=== PATIENT | female | born 1995 | race Caucasian/White ===

== ENCOUNTER → 2017-12-16 15:15 | Outpatient (CLI) | payer OTHER, SELFPAY ==
--- NOTE | 2017-12-16 15:22 | US_ITS ---
STUDY: FIRST TRIMESTER OBSTETRICAL ULTRASOUND REASON FOR EXAM: Female, 22 years old. Bleeding, pain LMP: October 30, 2017 TECHNIQUE: Transvaginal TECHNICAL QUALITY: Adequate. PRIOR ULTRASOUND: None. FINDINGS: At the level of the cervix there is a small focus of well-circumscribed cystic structure measuring 0.78 cm. There is no demonstrated yolk sac. The placenta is non-visualized. There is no demonstrated embryo ( pole). The estimated gestation age (EGA) by LMP is 6 weeks, 5 days. The estimated date of delivery (GRICEL) by LMP is August 06, 2018. The retroverted uterus measures 7.7 x 5.5 x 5.0. There is no demonstrated uterine fibroid. The cervix is closed. The right ovary measures 4.0 x 2.4 x 2.2. There is a right ovarian cyst measuring 1.3 x 0.7 x 0.9 cm. The left ovary measures 3.8 x 2.2 x 1.7 cm. There is no left ovarian cyst. There is no visualized left adnexal mass or complex lesion. There are prominent bilateral pelvic vessels. There is no fluid in the cul de sac. US/Transvaginal w/Preg US IMPRESSION: There is a cystic structure at the low uterine segment/cervix which may represent a migrated gestational sac. There is a small amount of free fluid in the pelvis. Recommend correlation with beta hCG and follow-up ultrasound. Small amount of free fluid. No definitive visualized complex adnexal mass. Bilateral pelvic varices. Electronically Signed: Shari Calderon MD at 16:32 EDT Tel , Service support ,
[2017-12-16 18:13] LABS: hCG Titer Quant., Serum 1378 mIU/mL (<9 non-preg)
== END ==
PROVIDERS: Referring Provider Obstetrics & Gynecology; Visit Provider Obstetrics & Gynecology
DX: O20.0 Threatened abortion (principal); Z3A.00 Weeks of gestation of pregnancy not specified
CPT/HCPCS: 36415; 76817; 84702; 86850; 86900

== ENCOUNTER → 2018-04-11 09:09 | Outpatient (CLI) | payer OTHER, SELFPAY ==
[2018-04-11 08:11] VITALS: BMI 26.6
[2018-04-11 09:43] LABS: Absolute Lymphocyte Count 1.81 X10^3/ul (0.83-4.51); Absolute Neutrophil Count 5.8 X10^3/uL (2.0-7.7); Basophil# 0.02 X10^3/uL; Basophil% 0.2 % (0-1); Eosinophil# 0.04 X10^3/uL; Eosinophils% 0.5 % (0-5); Hematocrit 38.1 % (37-47); Hemoglobin 12.9 g/dl (12.0-15.0); Lymphocyte # 1.81 X10^3/ul (4.0); Lymphocyte % 22.4 % (19-41); Mean Corp Hgb Conc 33.9 g/gl (32-36); Mean Corpuscular Hgb 30.2 pg (27.0-32.0); Mean Corpuscular Volume 89.2 fL (81-99); Mean Platelet Vol. 8.9 fl (6.2-12.0); Monocyte% 4.9 % (0-10); Neutrophil % 71.8 % (47-70); Platelet Count 250 K/mm3 (150-450); RBC Distribution Width SD 38.4 fl (35.1-43.9); Red Blood Count 4.27 M/mm3 (4.2-5.4); White Blood Count 8.1 K/mm3 (4.4-11.0)
[2018-04-11 09:46] LABS: POSITIVE COUNT NO; POSITIVE DIFFERENTIAL NO; POSITIVE MORPHOLOGY NO
[2018-04-11 11:01] LABS: HIV - WCH Non-Reactive (Nonreactive); Rubella IgG 43.2 IU/mL
[2018-04-11 23:11] LABS: Chlamydia Trachomatis by PCR Negative (Negative); Neisserai gonorrhoeae by PCR Negative (Negative); Probe Check PASS; Sample Adequacy Control PASS; Specimen Processing Control PASS
[2018-04-12 11:52] LABS: HEPATITIS B SURFACE AG Negative (Negative)
[2018-04-14 07:39] LABS: Rapid Plasmin Reagin (RPR) NONREACTIVE (NONREACTIVE)
== END ==
PROVIDERS: Referring Provider Obstetrics & Gynecology; Visit Provider Obstetrics & Gynecology
DX: Z34.90 Encounter for supervision of normal pregnancy, unspecified, unspecified trimester (principal)
CPT/HCPCS: 85025; 86592; 86703; 86762; 86850; 86900; 87086; 87340; 87491; 87591

== ENCOUNTER → 2018-08-21 14:21 | Outpatient (CLI) | payer OTHER, SELFPAY ==
[2018-08-21 14:13] VITALS: BMI 26.7
[2018-08-21 15:01] LABS: Absolute Lymphocyte Count 1.91 X10^3/ul (0.83-4.51); Absolute Neutrophil Count 5.9 X10^3/uL (2.0-7.7); Basophil# 0.03 X10^3/uL; Basophil% 0.4 % (0-1); Eosinophil# 0.12 X10^3/uL; Eosinophils% 1.4 % (0-5); Hematocrit 35.6 % (37-47); Hemoglobin 11.9 g/dl (12.0-15.0); Lymphocyte # 1.91 X10^3/ul (4.0); Lymphocyte % 22.7 % (19-41); Mean Corp Hgb Conc 33.4 g/gl (32-36); Mean Corpuscular Hgb 30.6 pg (27.0-32.0); Mean Corpuscular Volume 91.5 fL (81-99); Mean Platelet Vol. 8.7 fl (6.2-12.0); Monocyte# 0.39 X10^3/uL; Monocyte% 4.6 % (0-10); Neutrophil # 5.94 X10^3/uL (2.7-7.7); Neutrophil % 70.7 % (47-70); Platelet Count 227 K/mm3 (150-450); RBC Distribution Width CV 12.8 % (11.6-14.6); RBC Distribution Width SD 42.4 fl (35.1-43.9); Red Blood Count 3.89 M/mm3 (4.2-5.4); White Blood Count 8.4 K/mm3 (4.4-11.0)
[2018-08-21 15:03] LABS: POSITIVE COUNT NO; POSITIVE DIFFERENTIAL NO; POSITIVE MORPHOLOGY NO
[2018-08-21 15:17] LABS: Glucose Challenge Gest 1H 50g 126 mg/dL (70-140)
== END ==
PROVIDERS: Referring Provider Obstetrics & Gynecology; Visit Provider Obstetrics & Gynecology
DX: Z34.90 Encounter for supervision of normal pregnancy, unspecified, unspecified trimester (principal)
CPT/HCPCS: 36415; 82950; 85025

== ENCOUNTER 2018-11-10 09:20 | Inpatient (IN) | payer OTHER, SELFPAY ==
[2018-08-21 14:13] VITALS: BMI 26.7
[2018-10-31 14:01] VITALS: BMI 30.7
[2018-11-10] VITALS (19 sets, daily range): BP systolic 121–146; BP diastolic 71–90; PULSE 74–96; RESP 18–20; TEMP 36.1–37.3; O2SAT 96–98; BMI 31.4
[2018-11-10] MEDS: Lactated Ringers 1,000 ML 999 ML IV (09:40)
[2018-11-10 10:06] LABS: Absolute Lymphocyte Count 2.25 X10^3/uL (0.83-4.51); Absolute Neutrophil Count 5.1 X10^3/uL (2.0-7.7); Basophil# 0.04 X10^3/uL; Basophil% 0.5 % (0-1); Eosinophil# 0.07 X10^3/uL; Eosinophils% 0.9 % (0-5); Hematocrit 36.2 % (37-47); Hemoglobin 12.3 g/dL (12.0-15.0); Lymphocyte # 2.25 X10^3/ul (4.0); Lymphocyte % 27.6 % (19-41); Mean Corpuscular Hgb 30.9 pg (27.0-32.0); Mean Platelet Vol. 10.1 fl (6.2-12.0); Monocyte% 7.4 % (0-10); NRBC Flagged by Analyzer 0 % (0-5); Neutrophil # 5.12 X10^3/uL (2.7-7.7); Neutrophil % 62.9 % (47-70); Platelet Count 192 K/mm3 (150-450); RBC Distribution Width CV 12.4 % (11.6-14.6); Red Blood Count 3.98 M/mm3 (4.2-5.4); White Blood Count 8.1 K/mm3 (4.4-11.0)
[2018-11-10] MEDS: Lactated Ringers 1,000 ML 150 ML IV (10:40)
[2018-11-10] MEDS: Sodium Citrate/Citric Acid 30 ML UDC PO (11:16)
[2018-11-10] MEDS: Oxytocin 30 units/NS 500 ml 30 UNITS/500 ML IV.SOLN 167 UNITS IV (12:56)
[2018-11-10] MEDS: Acetaminophen 500 MG Tablet 1000 MG PO ×2 (13:41→21:49)
--- NOTE | 2018-11-10 14:34 | HP.PCM_ITS ---
- Problem List (1) History of delivery Status: Acute Comment: plan RLTCS- scheduled 11/10 at 0730 (2) Status: Acute Qualifiers: Comment: genetic, NTD, carrier screening declined. 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 Is patient in pain?: No Allergies No Known Allergies Allergy (Verified 10/31/18 14:00) Medications valacyclovir 500 mg tablet 500 mg PO DAILY #30 tab 12/19/17 [Rx Confirmed 10/31/18] vitamin#30 30 mg iron-10 mg iron-folic acid 1 mg-omg3 capsule cap PO cap 04/11/18 [History Confirmed 10/31/18] Last Menstral Period: 10/30/17 Zika: Zika virus screening: Negative : No [facility] Social History (Updated 10/31/18 @ 14:16 by Barbara Loja MD) Smoking Status: Never smoker alcohol intake: never substance use type: does not use caffeine: Yes what type of physical activity do you participate in: walking seatbelt use: always do you feel safe at home: Yes additional social history: Carlos Manuel- Works at [email or web address] Patient works at [employer] Pregancy History 3 Elective abortions Hx Para 1 Spontaneous abortions 1 Hx # Term Pregnancies Ectopic pregnancies Hx # Pregnancies Multiple births # of living children Past Pregnancies Del. Date Name GA/Weeks Outcome Route Bth Weight Gen Labor Lgth Anesthesia Del Locatn Provider FOB Unknown 2012 Ken 39 live - full term 8 14 ounces Male EB Delivery Date: On 04/11/18 @ 08:34 Barbara Loja due to LGA, post op pneumonia, blood transfused due to transfusion HPI 38 WEEK OB: Details: MARIKA TERRELL is a 23 year old who presents for routine OB visit. OB Visit GRICEL Calculator Estimated Delivery Date Method Current WG Current Estimate 11/17/18 LMP (Certain) 37w 4d Expected Delivery Route/Plan RLTCS Specific Issue/Plans flu vaccine: had tdap vaccine: given rhogam: na LARC form signed: declined labor support person: Carlos Manuel pain management: spinal cut cord/dad catch: : yes PP control planned: [] discussed possible routes of delivery and associated risks: [] special requests: [] Initial Weight: Not Recorded Date EGA Weight BP Urine Prot Glucose FHR FuHt Pres Mov CTX Dilation Effaced St Visit Note Effaced 05/09/18 12w 4d 168 lb 4 oz 112/70 160 no vb cramping doing wel declined all genetic screening 06/09/18 17w 0d 169 lb 4 oz 142/70 Negative Negative 155 no vb cramping, schedule us 07/07/18 21w 0d 171 lb 120/68 161 Active Doing well. No VB, LOF 08/02/18 24w 5d 132/62 Negative Negative 155 no vb lof good fm 08/21/18 27w 3d 181 lb 4 oz 124/64 Negative Negative 150 30 no vb lof good fm n oregular ctx 09/04/18 29w 3d 183 lb 126/70 Negative Negative 140 31 no vb lof good fm no regular ctx intermittnt lower cramping in low back pain 09/19/18 31w 4d 186 lb 6 oz 118/70 Negative Negative 155 34 Active absent no vb lof good fm n oregular ctx 10/03/18 33w 4d 190 lb 124/72 Negative Negative 150 34 Active absent no vb lof good fm no regular ctx 10/17/18 35w 4d 196 lb 134/82 Negative Negative 150 36 Active absent no vb loof good fm no regular ctx 10/24/18 36w 4d 196 lb 140/92 150 37 Active absent patient declined gbs testing. no vb lof good fm no regularctx 10/31/18 37w 4d 196 lb 136/82 Negative Negative 140 39 Active absent no vb lof good fm no regular ctx but having some irregular pain and pressure Visit Notes Visit Date: 10/31/18 ??no vb lof good fm no regular ctx but having some irregular pain and pressure ??Barbara Loja MD on 10/31/18 Visit Date: 10/24/18 ??patient declined gbs testing. no vb lof good fm no regularctx ??Barbara Loja MD on 10/25/18 Visit Date: 10/17/18 ??no vb loof good fm no regular ctx ??Barbara Loja MD on 10/17/18 Visit Date: 10/03/18 ??no vb lof good fm no regular ctx ??Barbara Loja MD on 10/03/18 Visit Date: 09/19/18 ??no vb lof good fm n oregular ctx ??Barbara Loja MD on 09/19/18 Visit Date: 09/04/18 ??no vb lof good fm no regular ctx intermittnt lower cramping in low back pain ??Barbara Loja MD on 09/04/18 Visit Date: 08/21/18 ??no vb lof good fm n oregular ctx ??Barbara Loja MD on 08/21/18 Visit Date: 08/02/18 ??no vb lof good fm ??Barbara Loja MD on 08/02/18 Visit Date: 07/07/18 ??Doing well. No VB, LOF ??MT Momin on 07/07/18 Visit Date: 06/09/18 ??no vb cramping, schedule us ??Barbara Loja MD on 06/09/18 Visit Date: 05/09/18 ??no vb cramping doing wel declined all genetic screening ??Barbara Loja MD on 05/09/18 ACOG First Trimester First Trimester: Discussed Diagnostics Diagnostics Labs Blood Type A POSITIVE 04/11/18 Antibody Screen NEGATIVE 04/11/18 Hct 35.6 % (37-47) L 08/21/18 Hgb 11.9 g/dl (12.0-15.0) L 08/21/18 Rubella IgG Antibody 43.2 IU/mL 04/11/18 RPR NONREACTIVE (NONREACTIVE) 04/11/18 Hep Bs Antigen Negative (Negative) 04/11/18 HIV 1&2 Antibody Non-Reactive (Nonreactive) 04/11/18 Chlam trachomat DNA PCR Negative (Negative) 04/11/18 N.gonorrhoeae DNA (PCR) Negative (Negative) 04/11/18 Glucose 1 Hr 50 gm 126 mg/dL (70-140) 08/21/18 Diagnostics Blood Type A POSITIVE 04/11/18 Antibody Screen NEGATIVE 04/11/18 Glucose 1 Hr 50 gm 126 mg/dL (70-140) 08/21/18 HIV 1&2 Antibody Non-Reactive (Nonreactive) 04/11/18 Rubella IgG Antibody 43.2 IU/mL 04/11/18 Hgb 11.9 g/dl (12.0-15.0) L 08/21/18 Hct 35.6 % (37-47) L 08/21/18 RPR NONREACTIVE (NONREACTIVE) 04/11/18 Details: HIV: Urine Culture: Sequential Screen: NIPT Screen: ROS: all systems reviewed and negative unless otherwise specified PE: VSSAF General: alert oriented comfortable HEENT: no thyromegaly or lymphadenopathy Cardio: RRR Pulm: CTAB Abdn: gravid nttp appropriate for GA FHT 140 Ext: minimal edema Results [id number] Office Urine Glucose Negative Last Edit by Gisela Truong on 10/31/18 14:0 5 Office Urine Protein Negative Last Edit by Gisela Truong on 10/31/18 14:0 5 Assessment & Plan Problems 1. History of delivery Z98.891 3. Encounter for supervision of other normal in third trimester Z34.83 4. Herpes simplex vulvovaginitis A60.04 Plan RLTCS patient declined TOLAC Orders Orders: POC Urinalysis 2 Dip (Clinic) Today Coding Level of Care Code OB Routine Diagnoses History of delivery Z98.891 37 weeks gestation of Z3A.37 ??Weeks of gestation: 37 weeks Encounter for supervision of other normal in third trimester Z34.83 ??Normal : other normal ??Trimester: third trimester Herpes simplex vulvovaginitis A60.04 ??Herpes simplex infection site: vulvovaginitis
--- NOTE | 2018-11-10 14:36 | OP.PCM_ITS ---
Problem List (1) History of delivery Status: Acute Comment: plan RLTCS- scheduled 11/10 at 0730 (2) Status: Acute Qualifiers: Comment: genetic, NTD, carrier screening declined. normal anatomy (3) Supervision of normal Status: Acute Qualifiers: Comment: PRR GRICEL 11/17/18 girl Katalina Rogers Carlos Manuel (4) Genital herpes Status: Acute Qualifiers: Comment: valtrex daily Delivery Classification: Scheduled Final GRICEL: 11/17/18 Gestational age: 39 Weeks and Days technologist development: Amairani Davis Type of Anesthesia:: Spinal Special Medications: none Implants Used: none Indications for : Repeat Elective Description of Procedure: The patient is a 23-year-old G2, P1 at 39 weeks presented for repeat . Spinal anesthesia was placed without difficulty. Mcintosh catheter was placed. The patient was placed in the dorsal supine position with leftward tilt. Patient was prepped and draped in the normal sterile fashion. Pfannenstiel skin incision was made with the scalpel and carried through to the underlying layer of fascia with the scalpel. Fascia was nicked in the midline and the incision extended laterally. The rectus bellies were dissected off superiorly and inferiorly with out complication both sharply and bluntly. The peritoneum was entered digitally. The incision was stretched and a low transverse uterine incision was made with the scalpel. The 's head was delivered atraumatically followed by the anterior and posterior shoulders without complication the rest of the delivered. The cord was clamped and cut and the was handed off to awaiting nurse. The placenta was delivered spontaneously immediately following and was noted to be intact and have a three- vessel cord. The uterus was exteriorized cleared of all clots and debris, and the incision was closed in a double layer closure using #1 Monocryl. The ovaries and fallopian tubes were noted to be within normal limits. The uterus was returned to the maternal abdomen and gutters were cleared of all clots and debris. The peritoneum was closed with 3-0 Monocryl in a running fashion. Gloves were changed prior to fascial closure. Fascia was closed with 0 PDS in a running fashion. Subcutaneous tissue was copiously irrigated and the skin was closed with 3-0 Monocryl in a subcuticular fashion. Mepilex dressing was applied without complication. Patient was taken to recovery in stable condition. Amniotic Membrane Rupture Type: Artificial Amniotic Fluid Description: Clear Placenta Disposition: [facility] Specimen(s) sent to pathology: placenta Drain: Mcintosh to straight drain Fluids Replaced: crystalloid Cord Entanglement: None Nuchal Cord Compression: Without compression Cord Vessel Description: 3 Vessels Esitmated Blood Loss (ml): 800 Infant Gender: Female Delayed cord clamping: Yes Antibiotic Given: Clindamycin 600mg IV x1 and Gentamicin 1.5mg/kg IV x1 Pt instructed on risks of surgery: Bleeding, Anesthesia Risks, Infection, Injury to surrounding structure(s) including bowel and bladder Complications: None - Admit VTE Documentation VTE Present on Admission: No VTE Mechan Device Prophylaxis: SCD's Multi Select Codes - Urinary/Genital Urinary/Genital CPT Codes: 23106 Delivery [facility]
[2018-11-10] MEDS: Lactated Ringers 1,000 ML 100 ML IV (16:07)
[2018-11-10] MEDS: Ondansetron ODT 4 MG Tablet PO (16:22)
[2018-11-10] MEDS: Ketorolac 30 MG/ML Syringe IV (18:08)
--- NOTE | 2018-11-10 19:54 | NURSING ---
Pt. up to walk in hallway. Up with assist x1, from room 10 around to room 3 and back to room to sit in chair again.
[2018-11-10] MEDS: Senna/Docusate Sodium 1 Tablet PO (21:50)
[2018-11-11] VITALS (10 sets, daily range): BP systolic 105–134; BP diastolic 62–87; PULSE 72–89; RESP 14–18; TEMP 36.1–37.1; O2SAT 95–99
[2018-11-11] MEDS: Ketorolac 30 MG/ML Syringe IV ×4 (00:25→17:29)
[2018-11-11] MEDS: Lactated Ringers 1,000 ML 100 ML IV (00:28)
--- NOTE | 2018-11-11 07:21 | PN.OBGYN_ITS ---
Subjective: doing well no complaints pain controlled no CP SOB N V ambulating well tolerating po lochia moderate, going well - Physical Exam General: Alert, Oriented x3 Vital Signs Temp Pulse Resp BP Pulse Ox 97.0 F L 78 18 105/62 95 11/11/18 04:00 11/11/18 04:00 11/11/18 07:00 11/11/18 04:00 11/11/18 07:00 Oxygen Delivery Method Room Air Weight: 200 lb 13.458 oz Body Mass Index (BMI) 31.4 Intake and Output for Last 24 Hours 11/09/18 11/10/18 11/11/18 23:59 23:59 23:59 Intake Total 5573.75 / 5573.75 776.67 / 776.67 Output Total 1400 / 1400 Balance 4173.75 / 4173.75 776.67 / 776.67 Laboratory Tests Past 24 Hrs 11/10/18 11/10/18 09:40 09:40 WBC 8.1 RBC 3.98 L Hgb 12.3 Hct 36.2 L MCV 91.0 MCH 30.9 MCHC 34.0 RDW Std Deviation 41.0 RDW Coeff of Keisha 12.4 Plt Count 192 MPV 10.1 Immature Gran % (Auto) 0.700 Neut % (Auto) 62.9 Lymph % (Auto) 27.6 [place] % (Auto) 7.4 Eos % (Auto) 0.9 Baso % (Auto) 0.5 Absolute Neuts (auto) 5.1 Absolute Lymphs (auto) 2.25 Nucleated RBC % 0 Blood Type A POSITIVE Antibody Screen NEGATIVE Medical Necessity - Tobacco Use Smoking Status: Never smoker Assessment/Plan All Active Problems (Last Reviewed 10/31/18 @ 14:01 by Gisela Truong) History of delivery (Acute) (Acute) Supervision of normal (Acute) Genital herpes (Acute) s/p LTCS PPD # 1 1. routine post care 2. breast feeding- support given 3. rh positive 4. rubella immune
--- NOTE | 2018-11-11 07:22 | DCINST_ITS ---
Discharge Diet: No Restrictions Discharge Activity: May Not Drive - for 2 weeks, May not drive while taking narcotic pain medications., May Shower, May Take a Tub Bath - in 7 days May resume sexual activity in: 4-6 weeks Lifting Restrictions: 20 pounds Additional Activity Instructions:: Nothing in the vagina for 4-6 weeks. You may return to work/school in 6 weeks. Call your doctor if your incision/area has: Continuous Slow Oozing, Sudden Increased Bleeding, Increased Pain/ Swelling, Increased Redness, Foul Smelling Discharge Call your doctor if you observe: Fever of 101 or Higher, Using more than one pad per hour - for 2 hours Suture Line Care: Avoid Pulling/Pushing, Avoid Pinching/Bending Cleanse incision/area with: Keep Dressing Clean & Dry Additional Instructions: If you experience any of the following, contact your healthcare provider. * Bleeding that soaks a pad every hour for 2 hours * Fever 100.4 or higher * Unrelieved incision or abdominal pain * Swelling, redness, discharge or bleeding from your incision or episiotomy site * Your incision begins to separate * Problems urinating (including inability to urinate or burning while urinating). * Visual changes * Severe headache * Flu-like symptoms * Pain or redness in one of both of your breasts * Pain, warmth, tenderness or swelling in your legs, especially the calf area * Frequent nausea and vomiting * Symptoms of depression or anxiety If you experience any of the following, call 911 or go to the nearest Emergency Room. * Chest pain * Problems breathing * Seizure activity * Partial or complete paralysis of a body part, slurred speech, weakness or drooping of the face, or a sudden inability to walk or hold your balance Allergies/Adverse Reactions: Allergies Penicillins [PCN] Allergy (Verified 11/11/18 02:50) Hives Medications to take at Discharge vitamin#30 30 mg iron-10 mg iron-folic acid 1 mg-omg3 capsule 1 cap PO DAILY cap 04/11/18 Valacyclovir HCl [Valacyclovir] 500 mg PO DAILY 11/10/18 Naproxen [Naprosyn] 250 - 500 mg PO Q8H PRN PRN #30 tab 11/11/18 Oxycodone HCl/Acetaminophen [Percocet 5-325] 1 - 2 tab PO Q4H PRN PRN 7 Days #28 tab 11/11/18 The following prescriptions were given: Naproxen [Naprosyn] 250 - 500 mg PO Q8H PRN PRN #30 tab PRN Reason: MILD PAIN Transmission Status: Received by [facility] Oxycodone HCl/Acetaminophen [Percocet 5-325] 1 - 2 tab PO Q4H PRN PRN 7 Days #28 tab PRN Reason: Moderate-Severe pain Transmission Status: Received by [facility] Follow-Up: Call to make an appointment with your doctor for an incision check in 1-2 weeks. You will also need a 6 week post- follow up appointment. Test results from this visit will be discussed in further detail at your follow- up appointment, if applicable. Please Follow Up With: Barbara Loja MD - Call to make an appointment for an incision check in 1-2 [phone] When: You will need a post- check in 6 weeks. Primary Care Physician: Care Physician,No Primary [Primary Care Provider] -
[2018-11-11 07:32] LABS: Hematocrit 30.9 % (37-47); Hemoglobin 10.5 g/dL (12.0-15.0); Mean Corpuscular Hgb 30.9 pg (27.0-32.0); Mean Corpuscular Volume 90.9 fL (81-99); Mean Platelet Vol. 9.9 fl (6.2-12.0); Platelet Count 166 K/mm3 (150-450); RBC Distribution Width CV 12.6 % (11.6-14.6); RBC Distribution Width SD 41.3 fl (35.1-43.9); White Blood Count 7.9 K/mm3 (4.4-11.0)
[2018-11-11] MEDS: 0.9% Saline Lock 10 ML Syringe 5 ML IV (17:30)
== END 2018-11-11 18:00 | disposition home or self-care (01) | DRG 787 ==
PROVIDERS: Admitting Provider Obstetrics & Gynecology; Referring Provider Obstetrics & Gynecology; Visit Provider Obstetrics & Gynecology
PROC: 10D00Z1 Extraction of Products of Conception, Low, Open Approach (ICD-10-PCS; CPT 59514; principal; 2018-11-10 11:15)
DX: O65.5 Obstructed labor due to abnormality of maternal pelvic organs (principal); O98.32 Other infections with a predominantly sexual mode of transmission complicating childbirth; A60.04 Herpesviral vulvovaginitis; O34.211 Maternal care for low transverse scar from previous cesarean delivery; Z3A.39 39 weeks gestation of pregnancy; Z37.0 Single live birth
CPT/HCPCS: 85025; 85027; 86850; 86900; 86901; 99218; J7120; A4216; G0378; J2405

== ENCOUNTER → 2018-12-21 16:57 | Outpatient (CLI) | payer OTHER, SELFPAY ==
[2018-12-21 13:49] VITALS: BMI 31.4
[2018-12-26 16:45] LABS: HPV Reflexed? NOT INDICATED
== END ==
PROVIDERS: Referring Provider Obstetrics & Gynecology; Visit Provider Obstetrics & Gynecology
DX: Z12.4 Encounter for screening for malignant neoplasm of cervix (principal)
CPT/HCPCS: 88175; G0145

== ENCOUNTER → 2019-10-29 16:06 | Outpatient (CLI) | payer OTHER, SELFPAY ==
[2019-10-29 16:01] VITALS: BMI 31.4
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
== END ==
PROVIDERS: Referring Provider Physician Assistant; Visit Provider Physician Assistant
DX: S89.91XA Unspecified injury of right lower leg, initial encounter (principal)
CPT/HCPCS: 73564

== ENCOUNTER → 2020-05-05 09:25 | Outpatient (CLI) | payer OTHER, SELFPAY ==
[2020-01-02 11:25] VITALS: BMI 27.7
[2020-05-05 10:37] LABS: hCG Titer Quant., Serum 235 mIU/mL (1-3)
== END ==
PROVIDERS: Referring Provider Obstetrics & Gynecology; Visit Provider Obstetrics & Gynecology
DX: O02.1 Missed abortion (principal); Z3A.00 Weeks of gestation of pregnancy not specified
CPT/HCPCS: 36415; 84702

== ENCOUNTER → 2020-05-07 09:24 | Outpatient (CLI) | payer OTHER, SELFPAY ==
[2020-01-02 11:25] VITALS: BMI 27.7
[2020-05-07 11:04] LABS: hCG Titer Quant., Serum 71 mIU/mL (1-3)
== END ==
PROVIDERS: Referring Provider Obstetrics & Gynecology; Visit Provider Obstetrics & Gynecology
DX: O02.1 Missed abortion (principal)
CPT/HCPCS: 36415; 84702

== ENCOUNTER → 2020-05-13 14:24 | Outpatient (CLI) | payer OTHER, SELFPAY ==
[2020-05-13 14:07] VITALS: BMI 29.0
[2020-05-13 15:16] LABS: hCG Titer Quant., Serum 4 mIU/mL (1-3)
[2020-05-16 16:08] LABS: Dilute Prothrombin Time (dPT) 34.3 sec (0.0-55.0); Dilute Russell Viper Venom 39.1 sec (0.0-47.0); PTT-LA 39.6 sec (0.0-51.9); Thrombin Time 19.3 sec (0.0-23.0); dPT Confirm Ratio 1.08 Ratio (0.00-1.40)
[2020-05-16 16:42] LABS: Anti-Cardiolipin Ab, IgA, Qn < 9 APL U/mL (0-11); Anti-Cardiolipin Ab, IgG, Qn < 9 GPL U/mL (0-14); Anti-Cardiolipin Ab, IgM, Qn < 9 MPL U/mL (0-12); Beta-2-Glycoprotein I IgA <9 (0-25); Beta-2-Glycoprotein I IgG <9 (0-20); Beta-2-Glycoprotein I IgM <9 (0-32); Interpretation Comment: (.)
== END ==
PROVIDERS: Referring Provider Obstetrics & Gynecology; Visit Provider Obstetrics & Gynecology
DX: O02.1 Missed abortion (principal); N96 Recurrent pregnancy loss; Z3A.00 Weeks of gestation of pregnancy not specified
CPT/HCPCS: 36415; 84443; 84702; 86146; 86147

== ENCOUNTER → 2020-09-27 10:36 | Outpatient (CLI) | payer OTHER, SELFPAY ==
[2020-05-13 14:07] VITALS: BMI 29.0
[2020-09-27 11:56] LABS: hCG Titer Quant., Serum 7692 mIU/mL (1-3)
== END ==
PROVIDERS: Referring Provider Obstetrics & Gynecology; Visit Provider Obstetrics & Gynecology
DX: N91.2 Amenorrhea, unspecified (principal)
CPT/HCPCS: 36415; 84702

== ENCOUNTER → 2020-09-29 07:50 | Outpatient (CLI) | payer OTHER, SELFPAY ==
[2020-05-13 14:07] VITALS: BMI 29.0
[2020-09-29 08:56] LABS: hCG Titer Quant., Serum 13324 mIU/mL (1-3)
== END ==
PROVIDERS: Referring Provider Obstetrics & Gynecology; Visit Provider Obstetrics & Gynecology
DX: N91.2 Amenorrhea, unspecified (principal)
CPT/HCPCS: 36415; 84702

== ENCOUNTER → 2020-10-27 15:23 | Outpatient (CLI) | payer OTHER, SELFPAY ==
[2020-10-27 13:29] VITALS: BMI 29.3
[2020-10-27 16:05] LABS: Amphetamine Urine VISTA NEGATIVE (<1000 ng/mL); Barbiturate Urine VISTA NEGATIVE (< 200 ng/mL); Benzodiazepine Urine VISTA NEGATIVE (< 200 ng/mL); Cocaine Urine VISTA NEGATIVE (< 300 ng/mL); Ecstacy Urine VISTA NEGATIVE (< 500 ng/mL); Methadone Urine VISTA NEGATIVE (< 300 ng/mL); PCP Urine VISTA NEGATIVE (< 25 ng/mL); THC Urine VISTA NEGATIVE (< 50 ng/mL); Vista UDS pH Range 6
[2020-10-29 20:08] LABS: Chlamydia By Nucleic Acid AMP Negative (Negative)
[2020-10-29 20:24] LABS: Gonococcus By Nucleic Acid AMP Negative (Negative)
== END ==
PROVIDERS: Referring Provider Obstetrics & Gynecology; Visit Provider Obstetrics & Gynecology
DX: Z34.90 Encounter for supervision of normal pregnancy, unspecified, unspecified trimester (principal)
CPT/HCPCS: 80307; 87086; 87088; 87491; 87591

== ENCOUNTER → 2020-10-30 09:52 | Outpatient (CLI) | payer OTHER, SELFPAY ==
[2020-10-30 10:09] LABS: Absolute Lymphocyte Count 1.64 X10^3/uL (0.83-4.51); Absolute Neutrophil Count 3.8 X10^3/uL (2.0-7.7); Basophil# 0.04 X10^3/uL; Basophil% 0.7 % (0-1); Eosinophil# 0.11 X10^3/uL; Eosinophils% 1.8 % (0-5); Hematocrit 37.8 % (37-47); Hemoglobin 12.6 g/dL (12.0-15.0); Lymphocyte # 1.64 X10^3/ul (0.83-4.51); Lymphocyte % 27.2 % (19-41); Mean Corp Hgb Conc 33.3 g/dL (32-36); Mean Corpuscular Hgb 29.4 pg (27.0-32.0); Mean Corpuscular Volume 88.3 fL (81-99); Mean Platelet Vol. 8.8 fl (6.2-12.0); Monocyte% 6.6 % (0-10); NRBC Flagged by Analyzer 0 % (0-5); Neutrophil # 3.83 X10^3/uL (2.7-7.7); Neutrophil % 63.4 % (47-70); Platelet Count 275 K/mm3 (150-450); RBC Distribution Width CV 11.8 % (11.6-14.6); RBC Distribution Width SD 37.8 fl (35.1-43.9); Red Blood Count 4.28 M/mm3 (4.2-5.4)
[2020-10-30 11:05] LABS: NATERA MAILED SPECIMEN
[2020-10-30 11:20] LABS: HIV - WCH Non-Reactive (Nonreactive); Hepatitis B Surface Antigen Non-Reactive (Nonreactive); Hepatitis C Antibody Non-Reactive (Nonreactive); Rubella IgG Reactive (Nonreactive); Syphilis Antibodies Non-reactive
== END ==
PROVIDERS: Referring Provider Obstetrics & Gynecology; Visit Provider Obstetrics & Gynecology
DX: Z34.81 Encounter for supervision of other normal pregnancy, first trimester (principal)
CPT/HCPCS: 36415; 85025; 86703; 86762; 86780; 86803; 86850; 86900; 86901; 87340

== ENCOUNTER → 2021-01-01 13:17 | Outpatient (CLI) | payer OTHER, SELFPAY ==
--- NOTE | 2021-01-01 13:22 | US_ITS ---
STUDY: SECOND AND THIRD TRIMESTER OBSTETRICAL ULTRASOUND REASON FOR EXAM: Female, 25 years old anatomy @ 20 weeks, pt 17 wks now LMP: 08/21/2020. TECHNIQUE: Transabdominal and Transvaginal TECHNICAL QUALITY: Adequate. PRIOR ULTRASOUND: None. FINDINGS: There is a single intrauterine fetus. The fetus is in a cephalic presentation. There is demonstrated cardiac activity with a heart rate of 147 bpm. There is a normal amniotic fluid volume. The largest amniotic fluid pocket measures 5.4 cm. The amniotic fluid index (NHI) is within normal limits The placenta is posterior in location and is not low lying. There are Grade 0 placental changes. The cervix measures 4.6 cm in length. The bilateral adnexal regions are normal. BIOMETRY: BPD: 4.22 cm: 18 weeks, 5 days HC: 16.03 cm: 18 weeks, 5 days AC: 14.53 cm: 19 weeks, 6 days FL: 2.88 cm: 8 weeks, 5 days CI: 74% FL/BPD: 68% FL/HC: FL/AC: 20% HC/AC: 1.1 age by current US: 19 weeks, 0 days. GRICEL by current US: 05/28/2021. Estimated weight: 288 grams, +/- 43 grams, 66 %. Age by LMP: 19 weeks, 0 days. GRICEL by LMP: 05/28/2021. ANATOMY: Gender: Female Cranium: Normal lateral ventricles. Normal choroid plexus. Normal cerebellum. Normal cisterna magna. Normal face, nose and lips. Chest: Normal 4-chamber heart. Abdomen/Pelvis: Normal diaphragm. Normal stomach. Normal abdominal wall. Normal cord insertion. Normal 3 vessel cord. Normal kidneys. Normal bladder. Spine: Normal cervical spine. Normal thoracic spine. Normal lumbar spine. Normal sacrum. Extremities: Normal bilateral upper extremities. Normal bilateral lower extremities. US/OB Anatomy Scan IMPRESSION: Single live intrauterine gestation with a mean gestational age of 19 weeks and 0 days. Electronically Signed: Kurtis Kennedy MD at 15:41 EDT , Service support ,
== END ==
PROVIDERS: Referring Provider Nurse Practitioner Women's Health; Visit Provider Nurse Practitioner Women's Health
DX: Z34.92 Encounter for supervision of normal pregnancy, unspecified, second trimester (principal); Z3A.19 19 weeks gestation of pregnancy
CPT/HCPCS: 76805; 76817

== ENCOUNTER → 2021-02-19 09:47 | Outpatient (CLI) | payer OTHER, SELFPAY ==
[2021-02-19 10:21] LABS: Absolute Lymphocyte Count 1.43 X10^3/uL (0.83-4.51); Absolute Neutrophil Count 6.6 X10^3/uL (2.0-7.7); Basophil# 0.05 X10^3/uL; Basophil% 0.6 % (0-1); Eosinophil# 0.06 X10^3/uL; Eosinophils% 0.7 % (0-5); Hemoglobin 11.7 g/dL (12.0-15.0); Lymphocyte # 1.43 X10^3/ul (0.83-4.51); Lymphocyte % 16.6 % (19-41); Mean Corp Hgb Conc 33.4 g/dL (32-36); Mean Corpuscular Hgb 30.2 pg (27.0-32.0); Mean Corpuscular Volume 90.4 fL (81-99); Mean Platelet Vol. 8.4 fl (6.2-12.0); Monocyte# 0.39 X10^3/uL; Monocyte% 4.5 % (0-10); NRBC Flagged by Analyzer 0 % (0-5); Neutrophil # 6.63 X10^3/uL (2.7-7.7); Neutrophil % 77.1 % (47-70); Platelet Count 329 K/mm3 (150-450); RBC Distribution Width CV 12.3 % (11.6-14.6); RBC Distribution Width SD 40.2 fl (35.1-43.9); Red Blood Count 3.87 M/mm3 (4.2-5.4); White Blood Count 8.6 K/mm3 (4.4-11.0)
[2021-02-19 10:33] LABS: Glucose Challenge Gest 1H 50g 91 mg/dL (70-140)
== END ==
PROVIDERS: Referring Provider Obstetrics & Gynecology; Visit Provider Obstetrics & Gynecology
DX: O09.90 Supervision of high risk pregnancy, unspecified, unspecified trimester (principal); Z3A.00 Weeks of gestation of pregnancy not specified
CPT/HCPCS: 36415; 82950; 85025

== ENCOUNTER 2021-05-01 16:52 | Outpatient (CLI) | payer OTHER, SELFPAY | END 2021-05-01 23:59 | disposition home or self-care (01) | LOC: LABSPEC 16:57 | PROVIDERS: Visit Provider Obstetrics & Gynecology | DX: O09.90 Supervision of high risk pregnancy, unspecified, unspecified trimester (principal) | CPT/HCPCS: 87081 ==

== ENCOUNTER 2021-05-15 10:32 | Outpatient (CLI) | payer OTHER, SELFPAY | END 2021-05-15 23:59 | disposition home or self-care (01) | LOC: LABSPEC 10:33 | PROVIDERS: Visit Provider Obstetrics & Gynecology | DX: Z34.83 Encounter for supervision of other normal pregnancy, third trimester (principal); Z3A.38 38 weeks gestation of pregnancy | CPT/HCPCS: 87635; U0003; U0005 ==

== ENCOUNTER 2021-05-21 05:40 | Inpatient (IN) | payer OTHER, SELFPAY ==
[2021-05-21] VITALS (17 sets, daily range): BP systolic 99–124; BP diastolic 51–81; PULSE 76–91; RESP 14–18; TEMP 36.1–36.9; O2SAT 95–100; BMI 35.2
[2021-05-21] MEDS: Lactated Ringers 1,000 ML 999 ML IV (06:20)
[2021-05-21] MEDS: Acetaminophen 500 MG Tablet 1000 MG PO ×3 (06:32→19:46)
[2021-05-21 06:43] LABS: Absolute Lymphocyte Count 2.49 X10^3/uL (0.83-4.51); Absolute Neutrophil Count 6.4 X10^3/uL (2.0-7.7); Basophil# 0.04 X10^3/uL; Basophil% 0.4 % (0-1); Eosinophil# 0.14 X10^3/uL; Eosinophils% 1.4 % (0-5); Hematocrit 35.8 % (37-47); Hemoglobin 12.8 g/dL (12.0-15.0); Lymphocyte # 2.49 X10^3/ul (0.83-4.51); Lymphocyte % 25.7 % (19-41); Mean Corp Hgb Conc 35.8 g/dL (32-36); Mean Corpuscular Hgb 31.4 pg (27.0-32.0); Mean Corpuscular Volume 87.7 fL (81-99); Mean Platelet Vol. 9.3 fl (6.2-12.0); Monocyte# 0.59 X10^3/uL; Monocyte% 6.1 % (0-10); NRBC Flagged by Analyzer 0 % (0-5); Neutrophil # 6.36 X10^3/uL (2.7-7.7); Neutrophil % 65.9 % (47-70); Platelet Count 234 K/mm3 (150-450); RBC Distribution Width CV 12.6 % (11.6-14.6); RBC Distribution Width SD 40.2 fl (35.1-43.9); Red Blood Count 4.08 M/mm3 (4.2-5.4); White Blood Count 9.7 K/mm3 (4.4-11.0)
[2021-05-21] MEDS: Sodium Citrate/Citric Acid 30 ML UDC PO (07:15)
[2021-05-21] MEDS: Lactated Ringers 1,000 ML 150 ML IV (07:15)
--- NOTE | 2021-05-21 07:27 | HP.PCM_ITS ---
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 Required: No Is patient in pain?: No Allergies Penicillins [PCN] Allergy (Verified 05/08/21 14:43) Hives Medications prenat.vits,tracy,[id number]-oyosz 1 tab PO DAILY 01/02/20 [History Confirmed 05/14/21] cyclobenzaprine 10 mg tablet 10 mg PO TID PRN #30 tab 05/01/21 [Rx Confirmed 05/14/21] Last Menstral Period: 08/21/20 Zika: Zika virus screening: Negative : No PFSH PFSH Medical History Complete miscarriage Surgical History S/P S/P tonsillectomy Social History adopted: No household members: spouse and children number of children: 2 current occupational status: employed current occupation: [employer] pets and animals: No Smoking Status: Never smoker alcohol intake: never substance use type: does not use caffeine: Yes what type of physical activity do you participate in: walking seatbelt use: always do you feel safe at home: Yes additional social history: Carlos Manuel- Works at [employer] Patient works also a [employer] Pregancy History 5 Elective abortions Hx Para 2 Spontaneous abortions 2 Hx # Term Pregnancies 2 Ectopic pregnancies Hx # Pregnancies Multiple births # of living children 2 Past Pregnancies Del. Date Name GA/Weeks Outcome Route Bth Weight Gen Labor Lgth Anesthesia Del Locatn Provider FOB Unknown 2012 [place] 39 live - full term 8 14 ounces Male EB 11/10/18 Katalina 39 live - full term 8lbs 13oz Female spinal [facility] Delivery Date: due to LGA, post op pneumonia, blood transfused due to transfusion [facility] [place] Delivery Date: 11/10/18 No notes to display HPI 38 WK OB Details: MARIKA TERRELL is a 25 year old who presents for routine OB visit. OB Visit GRICEL Calculator Estimated Delivery Date Method Current WG Current Estimate 05/28/21 LMP (Certain) 38w 0d Expected Delivery Route/Plan RLTCS with SM Specific Issue/Plans Covid status: non immune counseled regarding risk of covid in vs vaccination and declined vaccination Flu vaccine: declined Tdap vaccine: declinged Rhogam: na LARC form signed: declined movement and labor precautions reviewed. Problem list reviewed and updated with the most current plan of care details and appropriate orders placed. Relevant counseling for the gestational age provided. Continue routine care and follow up unless otherwise noted in visit notes/problem list details Initial Weight: 190 lb Date EGA Weight BP Urine Prot Glucose FHR FuHt Pres Dilation Effaced St Visit Note 10/27/20 9w 4d 193 lb (+3 lb) 110/70 170 SM_ CRL 2.7 cm cons with LMP 11/24/20 13w 4d 188 lb (-2 lb) 134/90 145 SM- n ovb cramping doing well 12/22/20 17w 4d 190 lb 4 oz (+4 oz) 138/80 Negative Negative 146 MH-No Vb, LOF. No FM yet. Wants US with [facility] due to cost. Declines Flu vaccine MH-No Vb, LOF. No FM yet. Wants US with [facility] due to cost. Declines Flu vaccine. Recent move to rental home and building new home. Much stress. 01/19/21 21w 4d 191 lb 4 oz (+1 lb 4 oz) 130/78 Negative Negative 140 22 SM- no vb lof good fm no regualr ctx 02/19/21 26w 0d 193 lb 2 oz (+3 lb 2 oz) 120/88 Negative Negative 134 26 JV- pt deciding on tdap and will read on ACOG. no complaints. normal GCT 03/18/21 29w 6d 199 lb 6 oz (+9 lb 6 oz) 122/82 Negative Negative 135 30 SM- no vb lof good fm no reuglar ctx 04/02/21 32w 0d 204 lb (+14 lb) 120/82 Negative Negative 135 32 SM- no vb lof good fm no regualr ctx 05/01/21 36w 1d 206 lb 2 oz (+16 lb 2 oz) 130/81 Negative Negative 135 36 Sm- no vb lof good fm no regular ctx gbs neg. Sm- no vb lof good fm no regular ctx gbs done. 05/08/21 37w 1d 207 lb (+17 lb) 100/60 Negative Negative 145 37 SM- no vb lof good fm no regular ctx 05/14/21 38w 0d 205 lb (+15 lb) 122/80 Negative Negative 140 38 SM- no vb lof good fm no regular ctx ACOG First Trimester First Trimester: Second Trimester Second Trimester: Signs and Symptoms of Labor, Selecting a care provider, Reproductive Life Planning & Contreception, Care Planning, Tobacco Cessation, Depression/Anxiety and Intimate Partner Violence Third Trimester Third Trimester: Pain Management Plans, Labor support person(s), Immediate Larc, Movement Monitoring and Infant Feeding Yes ; Discussed Trial of Labor after Counseling and Discussed Circumcision preference Diagnostics Diagnostics Diagnostics: Blood Type A POSITIVE Antibody Screen NEGATIVE Glucose 1 Hr 50 gm 91 mg/dL (70-140) HIV 1&2 Antibody Non-Reactive (Nonreactive) Rubella IgG Antibody Reactive (Nonreactive) Hgb 11.7 g/dL (12.0-15.0) L Hct 35.0 % (37-47) L Chlamydia DNA (TYREE) Negative (Negative) N.gonorrhoeae DNA (TYREE) Negative (Negative) Details: HIV: Urine Culture: Sequential Screen: NIPT Screen: ROS Const Reports system reviewed and no additional complaints, except as documented Card Reports system reviewed and no additional complaints, except as documented Resp Reports system reviewed and no additional complaints, except as documented GI Reports system reviewed and no additional complaints, except as documented and Reports nausea Reports system reviewed and no additional complaints, except as documented Musc Reports system reviewed and no additional complaints, except as documented Exam Const General: cooperative, healthy appearing, comfortable and anxious [facility] Head: normal to inspection Nose: external nose normal Face and sinus: normal facial exam Neck Neck: normal visual inspection, full ROM and no lymphadenopathy Thyroid: thyroid normal Chest Chest palpation & inspection: normal inspection of the chest Resp Effort & Inspection: normal respiratory effort GI Inspection: normal to inspection Palpation: soft and other (gravid uterus) Other: vertex and appropriate size for gestational age Other: Cervical Exam: Extrem General: pedal edema Results POC Urinalysis 2 Dip (Clinic) Office Urine Glucose Negative Last Edit by Gisela Zimmerman on 05/14/21 13:41 Office Urine Protein Negative Last Edit by Gisela Zimmerman on 05/14/21 13:41 Coding Level of Care Code OB Routine Diagnoses Tetanus, diphtheria, and acellular pertussis (Tdap) vaccination declined Z28.21 Previous delivery affecting O34.219 Z3A.38 Weeks of gestation: 38 weeks Supervision of high risk , antepartum O09.90 Anxiety F41.9 History of recurrent miscarriages N96 Genital herpes A60.00 Herpes simplex infection site: unspecified Assessment and Plan Assessment and Plan (1) Tetanus, diphtheria, and acellular pertussis (Tdap) vaccination declined: Status: Acute (2) Previous delivery affecting : Status: Acute Comment: plan RLTCS w/ SM scheduled for 05/21 @ 7:30am (3) : Status: Acute Qualifiers: Weeks of gestation: 38 weeks Qualified Code(s): Z3A.38 - 38 weeks gestation of Comment: GBS neg. genetic- low risk girl and carrier screen; NL anatomy (4) Supervision of high risk , antepartum: Status: Acute Comment: PRR GRICEL 05/28/21 girl Ember[place] PC: Katalina Rogers. Spouse: Carlos Manuel (5) Anxiety: Status: Acute Comment: no meds; 12/22 declines RX (6) History of recurrent miscarriages: Status: Acute Comment: APL panel WNL (7) Genital herpes: Status: Acute Qualifiers: Herpes simplex infection site: unspecified Qualified Code(s): A60.00 - Herpesviral infection of urogenital system, unspecified Comment: valtrex daily after 36 wk Plan Details Other Orders: Orders: POC Urinalysis 2 Dip (Clinic) Today UPDATE- I have seen the patient and performed any clinically relevant updates to the history and physical exam. Barbara Loja MD
--- NOTE | 2021-05-21 07:27 | OP.PCM_ITS ---
Maternal Data Information GRICEL Calculator Estimated Delivery Date Method Current Current Estimate 05/28/21 LMP (Certain) 39w 0d Final GRICEL Source: LMP Details Operative Information Pre-Operative Diagnosis: Previous Post-Operative Diagnosis: same Indications for : Repeat Elective Classification: Scheduled Type of Anesthesia: Spinal Special Medications: none Antibiotic Given: Ancef 2 grams IV x1 Drain: Mcintosh to straight drain Estimated Blood Loss: 800 Fluids Replaced: crystalloid Findings Description of Procedure: Spinal anesthesia was placed without difficulty. Mcintosh catheter was placed. The patient was placed in the dorsal supine position with leftward tilt. Patient was prepped and draped in the normal sterile fashion. Pfannenstiel skin incision was made with the scalpel and carried through to the underlying layer of fascia with the scalpel. Fascia was nicked in the midline and the incision extended laterally. The rectus bellies were dissected off superiorly and inferiorly with out complication both sharply and bluntly. The peritoneum was entered digitally. The incision was stretched and a low transverse uterine incision was made with the scalpel. The infant's head was delivered atraumatically followed by the anterior and posterior shoulders without complication the rest of the delivered. The cord was clamped and cut and the was handed off to awaiting nurse. The placenta was delivered spontaneously immediately following and was noted to be intact and have a three- vessel cord. The uterus was exteriorized cleared of all clots and debris, and the incision was closed in a double layer closure using #1 Monocryl. The ovaries and fallopian tubes were noted to be within normal limits. The uterus was returned to the maternal abdomen and gutters were cleared of all clots and debris. The peritoneum was closed with 3-0 Monocryl in a running fashion. Gloves were changed prior to fascial closure. Fascia was closed with 0 PDS in a running fashion. Subcutaneous tissue was copiously irrigated and the skin was closed with 3-0 Monocryl in a subcuticular fashion. Mepilex dressing was applied without complication. Patient was taken to recovery in stable condition. It was discussed with the patient that based on the clinical information obtained during this encounter, combined with her history, at this time I would recommend cesareans for future deliveries if further pregnancies are desired. Amniotic Membrane Rupture Type: Artificial Amniotic Fluid Description: Clear Placenta Disposition: [facility] Cord Vessel Description: 3 Vessels Cord Entanglement: None Delayed Cord Clamping: Yes Complications Risks of Surgery Discussed w/Patient: Bleeding, Infection, Need for Future C- Sections and Injury to surrounding structure(s) including bowel and bladder Vaginal Delivery Complication Complications: None Admit VTE Documentation VTE Present on Admission: No VTE Mechan Device Prophylaxis: SCD's Procedures Urinary/Genital [id number]: 51284 Delivery [facility]
--- NOTE | 2021-05-21 07:28 | PCM.DC ---
Discharge Instructions Diet Discharge Diet: No restrictions Activity Discharge Activity: May Not Drive (for 2 weeks or while taking narcotic pain medications.), May Shower and May Take a Tub Bath (in 7 days) May shower in (days): 0 May resume sexual activity in: 4-6 weeks Weight Bearing Status: Full weight bearing Lifting Restrictions: 20 pounds Dressing / Incision Call your doctor if your incision/area has: Continuous Slow Oozing, Sudden Increased Bleeding, Increased Pain/ Swelling, Increased Redness and Foul Smelling Discharge Call your doctor if you observe: Fever of 101 or Higher and Using more than 1 pad per hour (for 2 hours) Suture Line Care: Avoid Pulling/Pushing and Avoid Pinching/Bending Cleanse incision/area with: Soap & Water and Keep Dressing Clean & Dry Follow Up Care Please Follow Up With: Barbara Loja MD When: Call [phone] to make an appointment for an incision check in 1-2 weeks. Test Results: Test results from this visit will be discussed in further detail at your follow-up appointment, if applicable. Discharge Plan Admission Admit Date/Time: 05/21/21 05:40 Attending Provider: Barbara Loja Primary Care Provider: Care Physician,Jes Primary Discharge Orders/Prescriptions Prescriptions: No Action prenat.vits,tracy,[id number]-jjrmu Tablet 1 tab PO DAILY RF: 0
[2021-05-21] MEDS: Oxytocin 30 units/NS 500 ml 30 UNITS/500 ML IV.SOLN 167 UNITS IV (08:50)
[2021-05-21] MEDS: Ketorolac 30 MG/ML Syringe IV ×2 (10:16→16:23)
[2021-05-21] MEDS: Lactated Ringers 1,000 ML 100 ML IV (12:19)
[2021-05-21] MEDS: 0.9% Saline Lock 10 ML Syringe IV (16:23)
[2021-05-21] MEDS: Enoxaparin 40 MG/0.4 ML Syringe SC (20:16)
[2021-05-21] MEDS: Naproxen 500 MG Tablet PO (23:07)
[2021-05-22] MEDS: Acetaminophen 500 MG Tablet 1000 MG PO ×2 (00:11→06:06)
[2021-05-22 04:09] VITALS: BP 97/64; PULSE 92; RESP 18; TEMP 36.2; O2SAT 96
[2021-05-22 04:37] LABS: Hematocrit 31.9 % (37-47); Hemoglobin 11.2 g/dL (12.0-15.0); Mean Corp Hgb Conc 35.1 g/dL (32-36); Mean Corpuscular Hgb 31.2 pg (27.0-32.0); Mean Corpuscular Volume 88.9 fL (81-99); Mean Platelet Vol. 9.2 fl (6.2-12.0); Platelet Count 169 K/mm3 (150-450); RBC Distribution Width CV 12.7 % (11.6-14.6); RBC Distribution Width SD 41.3 fl (35.1-43.9); Red Blood Count 3.59 M/mm3 (4.2-5.4); White Blood Count 9.7 K/mm3 (4.4-11.0)
[2021-05-22] MEDS: Naproxen 500 MG Tablet PO (06:06)
[2021-05-22 08:32] VITALS: BP 112/65; PULSE 68; RESP 16; TEMP 36.7
== END 2021-05-22 11:00 | disposition home or self-care (01) | DRG 787 ==
PROVIDERS: Admitting Provider Obstetrics & Gynecology; Visit Provider Obstetrics & Gynecology
PROC: 10D00Z1 Extraction of Products of Conception, Low, Open Approach (ICD-10-PCS; CPT 59514; principal; 2021-05-21 07:15)
DX: O34.219 Maternal care for unspecified type scar from previous cesarean delivery (principal); O98.52 Other viral diseases complicating childbirth; A60.00 Herpesviral infection of urogenital system, unspecified; F41.9 Anxiety disorder, unspecified; O99.344 Other mental disorders complicating childbirth; Z3A.38 38 weeks gestation of pregnancy; Z37.0 Single live birth; Z28.21 Immunization not carried out because of patient refusal
CPT/HCPCS: 59050; 85025; 85027; 86850; 86900; 86901; 99218; 99251; J7120; A4216; G0378; G0463

== ENCOUNTER → 2022-09-03 | Outpatient (CLI) | payer OTHER, SELFPAY ==
[2022-09-08 20:24] LABS: HPV Reflexed? NOT INDICATED
== END | disposition home or self-care (01) ==
PROVIDERS: Referring Provider Obstetrics & Gynecology; Visit Provider Obstetrics & Gynecology
DX: Z12.4 Encounter for screening for malignant neoplasm of cervix (principal); N93.9 Abnormal uterine and vaginal bleeding, unspecified
CPT/HCPCS: 87070; 87205; 88175; G0145

== ENCOUNTER → 2022-11-05 | Outpatient (CLI) | payer OTHER, SELFPAY ==
[2022-11-05 11:37] LABS: Anion Gap 2 (5-15); BUN 11 mg/dL (7-18); BUN/Creat Ratio 15.1 RATIO (10-20); Calcium,Total 9.5 mg/dL (8.5-10.1); Chloride 107 mmol/L (98-107); Creatinine, Serum 0.73 mg/dL (0.55-1.02); EST Glomerular Filtration Rate 103 mL/min (>60); Est Glom Filt Rate - Afr Amer 125 mL/min (>60); Glucose 92 mg/dL (74-106); Sodium Level 136 mmol/L (136-145)
== END | disposition home or self-care (01) ==
PROVIDERS: Referring Provider Obstetrics & Gynecology; Visit Provider Obstetrics & Gynecology
DX: L70.9 Acne, unspecified (principal)
CPT/HCPCS: 36415; 80048

== ENCOUNTER → 2023-05-25 | Outpatient (CLI) | payer OTHER, SELFPAY ==
[2023-05-25 11:25] LABS: Hemoglobin A1c 5.1 % (3.8-5.6)
[2023-05-25 11:39] LABS: Vitamin D,25 Hydroxy 38.1 ng/mL
[2023-05-25 11:46] LABS: T4 Free Direct 0.91 ng/dL (0.76-1.46); Thyroid Stim Hormone (TSH) 0.22 uIU/mL (0.358-3.74)
== END | disposition home or self-care (01) ==
PROVIDERS: Referring Provider Registered Nurse; Visit Provider Registered Nurse
DX: N89.8 Other specified noninflammatory disorders of vagina (principal); N93.9 Abnormal uterine and vaginal bleeding, unspecified
CPT/HCPCS: 36415; 82306; 83036; 84439; 84443; 87070; 87205

== ENCOUNTER → 2023-05-25 | Outpatient (CLI) | payer OTHER, SELFPAY | END | disposition home or self-care (01) | PROVIDERS: Referring Provider Registered Nurse; Visit Provider Registered Nurse | DX: N94.10 Unspecified dyspareunia (principal) | CPT/HCPCS: 87086 ==

== ENCOUNTER → 2023-06-29 | Outpatient (CLI) | payer OTHER, SELFPAY ==
[2023-06-29 13:02] LABS: Absolute Lymphocyte Count 1.89 X10^3/uL (0.83-4.51); Absolute Neutrophil Count 3.3 X10^3/uL (2.0-7.7); Basophil# 0.06 X10^3/uL; Eosinophil# 0.13 X10^3/uL; Eosinophils% 2.3 % (0-5); Hematocrit 38.5 % (37-47); Hemoglobin 12.3 g/dL (12.0-15.0); Lymphocyte # 1.89 X10^3/ul (0.83-4.51); Lymphocyte % 32.8 % (19-41); Mean Corp Hgb Conc 31.9 g/dL (32-36); Mean Corpuscular Hgb 28.5 pg (27.0-32.0); Mean Corpuscular Volume 89.3 fL (81-99); Mean Platelet Vol. 8.9 fl (6.2-12.0); Monocyte# 0.42 X10^3/uL; Monocyte% 7.3 % (0-10); NRBC Flagged by Analyzer 0 % (0-5); Neutrophil # 3.26 X10^3/uL (2.7-7.7); Neutrophil % 56.4 % (47-70); Platelet Count 266 K/mm3 (150-450); RBC Distribution Width SD 42.2 fl (35.1-43.9); Red Blood Count 4.31 M/mm3 (4.2-5.4); White Blood Count 5.8 K/mm3 (4.4-11.0)
[2023-06-29 13:30] LABS: Free T3 3.1 pg/mL (2.18-3.98); Thyroid Stim Hormone (TSH) 0.69 uIU/mL (0.358-3.74)
== END | disposition home or self-care (01) ==
PROVIDERS: Referring Provider Registered Nurse; Visit Provider Registered Nurse
DX: E05.90 Thyrotoxicosis, unspecified without thyrotoxic crisis or storm (principal); N93.9 Abnormal uterine and vaginal bleeding, unspecified
CPT/HCPCS: 36415; 84439; 84443; 84481; 85025

== ENCOUNTER → 2023-08-29 | Outpatient (CLI) | payer OTHER, SELFPAY ==
--- NOTE | 2023-08-29 15:24 | US_ITS ---
STUDY: FIRST TRIMESTER OBSTETRICAL ULTRASOUND REASON FOR EXAM: Female, 28 years old spotting LMP: 07/09/2023 TECHNIQUE: Transvaginal TECHNICAL QUALITY: Adequate. PRIOR ULTRASOUND: None. FINDINGS: There is visualization of a single gestational sac in a normal intrauterine position. The mean sac diameter (MSD) measures 3.3 cm, indicating an estimated gestational age (EGA) of 8 weeks, 3 days. The gestational sac shape is within normal limits. Heterogeneous high echogenicity material surrounding the gestational sac consistent with a probable large subchorionic hemorrhage. Recommend short interval follow-up. There is a visualized yolk sac. The yolk sac measures 0.3 cm. The placenta is non-visualized. There is visualization of a live embryo. The crown-rump length (CRL) measures 9 mm, indicating an estimated gestational age (EGA) of 7 weeks, 0 days. There is demonstrated cardiac activity with a heart rate of 127 bpm. The estimated gestation age (EGA) by LMP is 7 weeks, 2 days. The estimated date of delivery (GRICEL) by LMP is 04/14/2024. The estimated gestation age (EGA) by US is 7 weeks, 5 days. The estimated date of delivery (GRICEL) by US is 04/11/2024. The uterus measures 9.9 x 8.1 x 6.1 cm. There is no demonstrated uterine fibroid. The cervix is closed. The right ovary measures 3.5 x 2.7 x 2.2 cm. There is a 2 cm cyst. There is no visualized right adnexal mass or complex lesion. There is normal blood flow. The left ovary measures 3.1 x 1.9 x 1.4 cm. There is no left ovarian cyst. There is no visualized left adnexal mass or complex lesion. There is normal blood flow. There is no fluid in the cul de sac. US/Transvaginal w/Preg US IMPRESSION: There is a single live intrauterine gestation with ultrasound EGA of 7 weeks 5 days. Probable large subchorionic hemorrhage. Short interval follow-up is recommended. Electronically Signed: Rosales Pretty MD at 16:20 EDT ,
== END | disposition home or self-care (01) ==
LOC: US 15:22
PROVIDERS: Referring Provider Obstetrics & Gynecology; Visit Provider Obstetrics & Gynecology
DX: O09.299 Supervision of pregnancy with other poor reproductive or obstetric history, unspecified trimester (principal); N92.0 Excessive and frequent menstruation with regular cycle; Z3A.00 Weeks of gestation of pregnancy not specified; O99.891 Other specified diseases and conditions complicating pregnancy
CPT/HCPCS: 76817

== ENCOUNTER → 2023-09-07 | Outpatient (CLI) | payer OTHER, SELFPAY ==
[2023-09-07 15:08] LABS: Absolute Lymphocyte Count 2.09 X10^3/uL (0.83-4.51); Absolute Neutrophil Count 7.7 X10^3/uL (2.0-7.7); Basophil# 0.07 X10^3/uL; Basophil% 0.7 % (0-1); Eosinophil# 0.09 X10^3/uL; Eosinophils% 0.9 % (0-5); Hematocrit 38.7 % (37-47); Hemoglobin 12.8 g/dL (12.0-15.0); Lymphocyte # 2.09 X10^3/ul (0.83-4.51); Lymphocyte % 19.9 % (19-41); Mean Corp Hgb Conc 33.1 g/dL (32-36); Mean Corpuscular Hgb 28.3 pg (27.0-32.0); Mean Corpuscular Volume 85.6 fL (81-99); Mean Platelet Vol. 8.8 fl (6.2-12.0); Monocyte# 0.47 X10^3/uL; Monocyte% 4.5 % (0-10); NRBC Flagged by Analyzer 0 % (0-5); Neutrophil # 7.71 X10^3/uL (2.7-7.7); Neutrophil % 73.5 % (47-70); Platelet Count 305 K/mm3 (150-450); RBC Distribution Width CV 12.3 % (11.6-14.6); RBC Distribution Width SD 38.2 fl (35.1-43.9); Red Blood Count 4.52 M/mm3 (4.2-5.4); White Blood Count 10.5 K/mm3 (4.4-11.0)
[2023-09-07 15:36] LABS: T4 Free Direct 0.92 ng/dL (0.76-1.46); Thyroid Stim Hormone (TSH) 0.25 uIU/mL (0.358-3.74)
[2023-09-07 16:29] LABS: HIV - WCH Non-Reactive (Nonreactive); Hepatitis B Surface Antigen Non-Reactive (Nonreactive); Hepatitis C Antibody Non-Reactive (Nonreactive); Rubella IgG Reactive (Nonreactive); Syphilis Antibodies Non-reactive
[2023-09-09 22:07] LABS: Chlamydia By Nucleic Acid AMP Negative (Negative); Gonococcus By Nucleic Acid AMP Negative (Negative)
== END | disposition home or self-care (01) ==
PROVIDERS: Referring Provider Obstetrics & Gynecology; Visit Provider Obstetrics & Gynecology
DX: O99.280 Endocrine, nutritional and metabolic diseases complicating pregnancy, unspecified trimester (principal); Z11.3 Encounter for screening for infections with a predominantly sexual mode of transmission; E05.90 Thyrotoxicosis, unspecified without thyrotoxic crisis or storm; Z3A.00 Weeks of gestation of pregnancy not specified
CPT/HCPCS: 36415; 84439; 84443; 85025; 86703; 86762; 86780; 86803; 86850; 86900; 86901; 87086; 87088; 87340; 87491; 87591

== ENCOUNTER → 2023-11-23 | Outpatient (CLI) | payer OTHER, SELFPAY ==
--- NOTE | 2023-11-23 15:38 | US_ITS ---
INDICATION: anatomy EXAMINATION: Ultrasound US OB Greater Than 14 Weeks TECHNIQUE: Transabdominal pelvic ultrasound was performed. COMPARISON: Prior study dated: 08/29/2023 LMP: Unknown. Beta-hCG: Unknown. Provided EGA: 19 weeks 4 days FINDINGS: INTRAUTERINE GESTATION(s): Single. ESTIMATED GESTATIONAL AGE: 19 weeks 5 days ESTIMATED DUE DATE (GRICEL): 04/13/2024 BIOMETRIC MEASUREMENTS: HEAD CIRCUMFERENCE: 17.39 cm which corresponds to 19 weeks 6 days. BIPARIETAL DIAMETER: 4.57 cm which corresponds to 19 weeks 6 days. ABDOMINAL CIRCUMFERENCE: 15.50 cm which corresponds to 20 weeks 5 days. FEMORAL LENGTH: 2.99 cm which corresponds to 19 weeks 2 days. ANATOMY: Cerebellum: 1.87 cm Cisterna Magna: 0.27 cm Lateral Ventricle: 0.76 cm Face: Normal Spine: Normal Four-chamber Heart: Normal Diaphragm: Normal Fluid Filled Stomach: Normal Fluid Filled Bladder: Normal Three-vessel Cord: Normal Cord Insertion: Normal . 1.78 cm from the placental edge. Kidneys: Normal Extremities: Normal HEART MOTION is 157 bpm. AMNIOTIC FLUID MAXIMUM VERTICAL POCKET): 5.9 cm ESTIMATED WEIGHT: 328 g Percentile 70%. BIOPHYSICAL PROFILE (BPP): Not assessed. PRESENTATION: Transverse right PLACENTA: Anterior. There is no placenta previa or abruption. CERVIX: The cervix is closed. Cervical length 3.6 cm. FREE FLUID: None. US/OB Anatomy Scan IMPRESSION: Single live intrauterine of gestational age by ultrasound of 19 weeks 5 days. No acute abnormality. Electronically Signed: Ralph Lamar MD at 18:06 EDT ,
== END | disposition home or self-care (01) ==
PROVIDERS: Referring Provider Obstetrics & Gynecology; Visit Provider Obstetrics & Gynecology
DX: O09.90 Supervision of high risk pregnancy, unspecified, unspecified trimester (principal); Z3A.00 Weeks of gestation of pregnancy not specified
CPT/HCPCS: 76805

== ENCOUNTER → 2024-01-30 | Outpatient (CLI) | payer OTHER, SELFPAY ==
[2024-01-30 10:16] LABS: Absolute Lymphocyte Count 1.43 X10^3/uL (0.83-4.51); Absolute Neutrophil Count 4.8 X10^3/uL (2.0-7.7); Basophil# 0.05 X10^3/uL; Basophil% 0.7 % (0-1); Eosinophil# 0.08 X10^3/uL; Eosinophils% 1.2 % (0-5); Hematocrit 33.1 % (37-47); Hemoglobin 11.2 g/dL (12.0-15.0); Lymphocyte # 1.43 X10^3/ul (0.83-4.51); Lymphocyte % 21.1 % (19-41); Mean Corp Hgb Conc 33.8 g/dL (32-36); Mean Corpuscular Hgb 30.6 pg (27.0-32.0); Mean Corpuscular Volume 90.4 fL (81-99); Mean Platelet Vol. 9.1 fl (6.2-12.0); Monocyte# 0.38 X10^3/uL; Monocyte% 5.6 % (0-10); NRBC Flagged by Analyzer 0 % (0-5); Neutrophil % 70.7 % (47-70); Platelet Count 226 K/mm3 (150-450); RBC Distribution Width CV 12.6 % (11.6-14.6); RBC Distribution Width SD 41.3 fl (35.1-43.9); Red Blood Count 3.66 M/mm3 (4.2-5.4); White Blood Count 6.8 K/mm3 (4.4-11.0)
[2024-01-30 10:23] LABS: Glucose Challenge Gest 1H 50g 84 mg/dL (70-140)
[2024-01-30 10:56] LABS: HIV - WCH Non-Reactive (Nonreactive); Syphilis Antibodies Non-reactive
== END | disposition home or self-care (01) ==
LOC: BWCLAB 09:04
PROVIDERS: Referring Provider Obstetrics & Gynecology; Visit Provider Obstetrics & Gynecology
DX: O09.92 Supervision of high risk pregnancy, unspecified, second trimester (principal); Z3A.00 Weeks of gestation of pregnancy not specified; Z13.1 Encounter for screening for diabetes mellitus
CPT/HCPCS: 36415; 82950; 85025; 86703; 86780

== ENCOUNTER → 2024-02-29 | Outpatient (CLI) | payer OTHER, SELFPAY | END | disposition home or self-care (01) | PROVIDERS: Referring Provider Nurse Practitioner Women's Health; Visit Provider Nurse Practitioner Women's Health | DX: R39.89 Other symptoms and signs involving the genitourinary system (principal) | CPT/HCPCS: 87086 ==

== ENCOUNTER → 2024-03-16 | Outpatient (CLI) | payer OTHER, SELFPAY ==
[2024-03-16 13:06] LABS: T4 Free Direct 0.88 ng/dL (0.76-1.46); Thyroid Stim Hormone (TSH) 0.843 uIU/mL (0.358-3.740)
== END | disposition home or self-care (01) ==
LOC: BWCLAB 09:22
PROVIDERS: Referring Provider Obstetrics & Gynecology; Visit Provider Obstetrics & Gynecology
DX: E05.90 Thyrotoxicosis, unspecified without thyrotoxic crisis or storm (principal)
CPT/HCPCS: 36415; 84439; 84443

== ENCOUNTER → 2024-03-26 | Outpatient (CLI) | payer OTHER, SELFPAY ==
[2024-03-26 15:26] LABS: ROM Internal Control Test YES-OK TO RESULT pt. (Internal QC); ROM Patient Test Negative (Negative); Record Kit Lot#, ROM+ K2451
== END | disposition home or self-care (01) ==
LOC: BWCLAB 14:45
PROVIDERS: Referring Provider Obstetrics & Gynecology; Visit Provider Obstetrics & Gynecology
DX: O26.899 Other specified pregnancy related conditions, unspecified trimester (principal); N89.8 Other specified noninflammatory disorders of vagina; Z3A.00 Weeks of gestation of pregnancy not specified

== ENCOUNTER 2024-04-09 05:29 | Inpatient (IN) | payer OTHER, SELFPAY ==
[2024-04-09] VITALS (17 sets, daily range): BP systolic 106–146; BP diastolic 53–90; PULSE 70–99; RESP 14–20; TEMP 36.2–37.1; O2SAT 97–100; BMI 31.1
[2024-04-09] MEDS: Lactated Ringers 1,000 ML 999 ML IV (05:40)
[2024-04-09 05:56] LABS: Absolute Lymphocyte Count 1.99 X10^3/uL (0.83-4.51); Absolute Neutrophil Count 4.9 X10^3/uL (2.0-7.7); Basophil# 0.04 X10^3/uL; Basophil% 0.5 % (0-1); Eosinophil# 0.09 X10^3/uL; Eosinophils% 1.2 % (0-5); Hematocrit 31.7 % (37-47); Lymphocyte # 1.99 X10^3/ul (0.83-4.51); Mean Corp Hgb Conc 34.7 g/dL (32-36); Mean Corpuscular Hgb 30.1 pg (27.0-32.0); Mean Corpuscular Volume 86.6 fL (81-99); Mean Platelet Vol. 9.5 fl (6.2-12.0); Monocyte# 0.29 X10^3/uL; Monocyte% 3.9 % (0-10); NRBC Flagged by Analyzer 0 % (0-5); Neutrophil # 4.92 X10^3/uL (2.7-7.7); Neutrophil % 66.7 % (47-70); Platelet Count 215 K/mm3 (150-450); RBC Distribution Width CV 12.5 % (11.6-14.6); RBC Distribution Width SD 39.5 fl (35.1-43.9); Red Blood Count 3.66 M/mm3 (4.2-5.4); White Blood Count 7.4 K/mm3 (4.4-11.0)
--- NOTE | 2024-04-09 06:22 | HP.PCM_ITS ---
History and Physical Date of Admission: 04/09/24 Intake Vital Signs 11/08/2409:04 03/16/2507:57 03/26/2512:57 Height 5 ft 8 in 5 ft 8 in 5 ft 8 in Weight: 203 lb 6 oz BMI 30.9 BP 124/81 H Intake Visit Reasons: 36 WK OB *CSECTION W/SM* Gem Expert Required: No Allergies Penicillins (PCN) Allergy (Verified 03/26/24 13:58) Hives Medications ?Medication ?Instructions ?Recorded ?Confirmed ?Type prenat.vits,tracy,twh-wvsd-hnvht 1 tab PO DAILY Check with primary 01/02/20 03/26/24 History doctor Last Menstrual Period: 07/09/23 Zika: Zika virus screening: Negative : No Have you fallen in the past year?: No PFSH PFSH Medical History History of miscarriage Acne Vaginal discharge delivery delivered History of blood transfusion Genital herpes affecting hemorrhage Complete miscarriage History of recurrent miscarriages Surgical History S/P tonsillectomy S/P Social History adopted: No household members: spouse and children number of children: 3 current occupational status: employed current occupation: [employer] current occupational exposures/hazards: No pets and animals: No history of recent travel: No sexually active: Yes Smoking Status: Never smoker alcohol intake: never substance use type: does not use well-balanced diet: daily or most days caffeine: No eating out: rarely or never during the past year weight has: remained stable what type of physical activity do you participate in: walking seatbelt use: always do you feel safe at home: Yes additional social history: : Carlos Manuel Nunez ANG History 6 Elective abortions Hx Para 3 Spontaneous abortions 2 Hx # Term Pregnancies 3 Ectopic pregnancies Hx # Pregnancies Multiple births # of living children 3 Past Pregnancies Del. Date Name GA/Weeks Outcome Route Bth Weight Gen Labor Lgth Anesthesia Del Locatn Provider FOB Unknown 2012 [place] 39 live - full term 8 14 ounces Male EB 11/10/18 Katalina 39 live - full term 8lbs 13oz Female spinal [facility] 05/21/21 Jaime 39 live - full term 7lbs 8oz Female spinal [facility] SM Ilan Delivery Date: Last Updated by: Barbara Loja MD due to LGA, post op pneumonia, blood transfused due to transfusion HPI 36 WK OB *CSECTION W/SM* Details: MARIKA TERRELL is a 28 year old who presents for routine OB visit. OB Visit GRICEL Calculator Estimated Delivery Date Method Current WG Current Estimate 04/14/24 LMP (Certain) 37w 2d Expected Delivery Route/Plan ltcs with SM Specific Issue/Plans Covid status: [] Flu vaccine: declines Tdap vaccine: declines Rhogam: NA LARC form signed: declined. movement and labor precautions reviewed. Problem list reviewed and updated with the most current plan of care details and appropriate orders placed. Relevant counseling for the gestational age provided. Continue routine care and follow up unless otherwise noted in visit notes/problem list details Initial Weight: Not Recorded Date -?-?-?-?-?-?-?-?-?-?-?-?- EGA Weight BP Urine Prot -?-?-?-?-?-?-?-?-?-?-?-?- Glucose FHR FuHt Pres Dilation -?-?-?-?-?-?-?-?-?-?-?-?- Effaced St Visit Note 09/07/23-?-?-?-?-?-?-?-?-?-?-?-?- 8w 4d 167 lb 133/79 -?-?-?-?-?-?-?-?-?-?-?-?- 189 -?-?-?-?-?-?-?-?-?-?-?-?- SM- CRL 1.73cm cons with LMP small resolving hematoma 10/13/23-?-?-?-?-?-?-?-?-?-?-?-?- 13w 5d 172 lb 126/76 -?-?-?-?-?-?-?-?-?-?-?-?- 168 -?-?-?-?-?-?-?-?-?-?-?-?- KW- no vb/cramping. KW- no vb/cramping. US ordered. magnesium recommended for headaches 11/09/23-?-?-?-?-?-?-?-?-?-?-?-?- 17w 4d 174 lb 4 oz 107/73 Negative -?-?-?-?-?-?-?-?-?-?-?-?- Negative 151 -?-?-?-?-?-?-?-?-?-?-?-?- -No VB. Feeling flutters. Has had some dizzinessseeing spots. Reviewed fluid intake, more freq meals/protein. 12/01/23-?-?-?-?-?-?-?-?-?-?-?-?- 20w 5d 176 lb 112/69 Negative -?-?-?-?-?-?-?-?-?-?-?-?- Negative 153 20 -?-?-?-?-?-?-?-?-?-?-?-?- kw- no vb/cramping. good fm. normal US. 12/28/23-?-?-?-?--?-?-?-?-?-?-?-?- 24w 4d 184 lb 114/77 Negative -?-?-?-?-?-?-?-?-?-?-?-?- Negative 150 24 -?-?-?-?-?-?-?-?-?-?-?-?- JV- no lof, vaginal bleeding, or dec fm. rpt cs request sent 01/30/24-?-?-?-?-?-?-?-?-?-?-?-?- 29w 2d 195 lb 4 oz 132/86 Negative -?-?-?-?-?-?-?-?-?-?-?-?- Negative 146 28 -?-?-?-?-?-?-?-?-?-?-?-?- MH-No Vb, LOF. good Fm. Declines tdap. 28 wk labs pending 02/15/24-?-?-?-?-?-?-?-?-?-?-?-?- 31w 4d 198 lb 2 oz 120/83 Negative -?-?-?-?-?-?-?-?-?-?-?-?- Negative 130 31 -?-?-?-?-?-?-?-?-?-?-?-?- SM- no vb lof good fm no regular ctx 02/29/24-?-?-?-?-?-?-?-?-?-?-?-?- 33w 4d 200 lb 112/75 Negative -?-?-?-?-?-?-?-?-?-?-?-?- Negative 131 33 -?-?-?-?-?-?-?-?-?-?-?-?- MH-No VB, LOF. Good Fm. States urine is cloudy with more low pelvic pressure. 03/16/24-?-?-?-?-?-?-?-?-?-?-?-?- 35w 6d 200 lb 2 oz 122/74 Negative -?-?-?-?-?--?-?-?-?-?-?-?- Negative 130 36 Cephalic -?-?-?-?-?-?-?-?-?-?-?-?- SM- no vb lof good fm nreo shanelar ctx 03/26/24-?-?-?-?-?-?-?-?-?-?-?-?- 37w 2d 203 lb 6 oz 124/81 -?-?-?-?-?-?-?-?-?-?-?-?- 120 38 Cephalic -?-?-?-?-?-?-?-?-?-?-?-?- SM- quesitonable LOF rom plus sent. no vb good fm some lower pelivc painpreop consent signed ACOG First Trimester First Trimester: Discussed Second Trimester Second Trimester: Signs and Symptoms of Labor, Selecting a care provider, Reproductive Life Planning & Contreception, Care Planning, Tobacco Cessation, Depression/Anxiety and Intimate Partner Violence Third Trimester Third Trimester: Pain Management Plans, Labor support person(s), Immediate Larc, Movement Monitoring and Feeding No ; Discussed Trial of Labor after Counseling and Discussed Circumcision preference ROS Const Reports system reviewed and no additional complaints, except as documented Card Reports system reviewed and no additional complaints, except as documented Resp Reports system reviewed and no additional complaints, except as documented GI Reports system reviewed and no additional complaints, except as documented and Reports nausea Reports system reviewed and no additional complaints, except as documented Musc Reports system reviewed and no additional complaints, except as documented Exam Const General: cooperative, healthy appearing, comfortable and anxious HENMT Head: normal to inspection Nose: external nose normal Face and sinus: normal facial exam Neck Neck: normal visual inspection, full ROM and no lymphadenopathy Thyroid: thyroid normal Chest Chest palpation & inspection: normal inspection of the chest Resp Effort & Inspection: normal respiratory effort GI Inspection: normal to inspection Palpation: soft and other (gravid uterus) Other: vertex and appropriate size for gestational age Other: Cervical Exam: Extrem General: pedal edema Coding Level of Care Code OB Routine Diagnoses UTI (urinary tract infection) in in third trimester O23.43 H/O section Z98.891 Supervision of high risk in third trimester O09.93 Trimester: third trimester 37 weeks gestation of Z3A.37 Weeks of gestation: 37 weeks Subclinical hyperthyroidism E05.90 Genital herpes simplex, unspecified site A60.00 Herpes simplex infection site: unspecified Anxiety F41.9 Assessment and Plan Assessment and Plan (1) UTI (urinary tract infection) in in third trimester: Status: Acute Comment: UA+; culture negative. (2) H/O section: Status: Acute Comment: x3 - desires repeat csec with SM RLTCS scheduled for 04/09 @ 7:15 with (3) Supervision of high-risk : Status: Acute Qualifiers: Trimester: third trimester Qualified Code(s): O09.93 - Supervision of high risk , unspecified, third trimester Comment: PRR , GRICEL /, yoan Márquez PC: Katalina Rogers & Jaime, : Ilan (4) : Status: Acute Qualifiers: Weeks of gestation: 37 weeks Qualified Code(s): Z3A.37 - 37 weeks gestation of Comment: nl anatomy, declined genetic/carrier testing (5) Subclinical hyperthyroidism: Status: Acute Comment: repeat in 06/25. if continues refer to endo (6) Genital herpes: Status: Acute Qualifiers: Herpes simplex infection site: unspecified Qualified Code(s): A60.00 - Herpesviral infection of urogenital system, unspecified Comment: valtrex @ 36 wk (7) Anxiety: Status: Acute Comment: vistaril prn Orders: Orders POC Urinalysis 2 Dip (Clinic) Today Culture, Group B Streptococcus Today O09.93 - Supervision of high risk , unspecified, third trimester Clinical Quality Measures Falls Risk Screening/Assistive Devices Have you fallen in the past year?: No plan on RLTCS and bs
--- NOTE | 2024-04-09 06:22 | EX.PCM.OBRPT ---
Assessment & Plan (1) UTI (urinary tract infection) in in third trimester: COMMENT: UA+; culture negative. (2) H/O section: COMMENT: x3 - desires repeat csec with [facility] scheduled for 04/09 @ 7:15 with (3) Supervision of high-risk : QUALIFIERS: Trimester: third trimester Qualified Code(s): O09.93 - Supervision of high risk , unspecified, third trimester COMMENT: PRR , GRICEL 04/14, yoan Márquez PC: Katalina Rogers & Jaime, : Ilan (4) : QUALIFIERS: Weeks of gestation: 38 weeks Qualified Code(s): Z3A.38 - 38 weeks gestation of COMMENT: GBS Negative, nl anatomy, declined genetic/carrier testing (5) Subclinical hyperthyroidism: COMMENT: repeat in 06/25. if continues refer to endo (6) Genital herpes: QUALIFIERS: Herpes simplex infection site: unspecified Qualified Code(s): A60.00 - Herpesviral infection of urogenital system, unspecified COMMENT: valtrex @ 36 wk (7) Anxiety: COMMENT: vistaril prn (8) delivery delivered: COMMENT: [facility] Willi 39 Maternal Data Information GRICEL Calculator Estimated Delivery Date Method Current WG Current Estimate 04/14/24 LMP (Certain) 39w 2d Final GRICEL Source: LMP Operative Report (OB) Cecarean Details Procedure Type: low transverse Date of Procedure: 04/09/24 Procedure Start Time: 07:40 Procedure Stop Time: 08:20 Pre-Operative Diagnosis: Other Other Pre-Operative diagnosis: see a/p comments Post-Operative Diagnosis: Same as Pre-operative diagnosis Classification: Scheduled Type of Anesthesia: Spinal Special Medications: none Antibiotic Given: Ancef 2 grams IV x1 Drain: Mcintosh to straight drain Estimated Blood Loss: 1200 Fluids Replaced: crystalloid Findings Description of surgery: Spinal anesthesia was placed without difficulty. Mcintosh catheter was placed. The patient was placed in the dorsal supine position with leftward tilt. Patient was prepped and draped in the normal sterile fashion. Pfannenstiel skin incision was made with the scalpel and carried through to the underlying layer of fascia with the scalpel. Fascia was nicked in the midline and the incision extended laterally. The rectus bellies were dissected off superiorly through dense scar tissue that dissected well, and inferiorly with out complication both sharply and bluntly. The peritoneum was entered sharply after dissection of scar tissue carefully. The incision was stretched and a low transverse uterine incision was made with the scalpel, uterine sinus was encountered on the left side of the incision resulting in a greater blood loss during infant delivery. The 's head was delivered atraumatically followed by the anterior and posterior shoulders without complication the rest of the infant delivered. The cord was clamped and cut and the was handed off to awaiting nurse. The placenta was delivered spontaneously immediately following and was noted to be intact and have a three-vessel cord but some of the membranes were retained so a curretage with a banjo was performed and eveyrthing confirmed to be removed. this was done after The uterus was exteriorized cleared of all clots and debris, and the incision was closed in a single layer closure using #1 Monocryl. The ovaries and fallopian tubes were noted to be within normal limits. The uterus was returned to the maternal abdomen and gutters were cleared of all clots and debris. The peritoneum was closed with 3-0 Monocryl in a running fashion. Gloves were changed prior to fascial closure. Fascia was closed with 0 PDS in a running fashion. Subcutaneous tissue was copiously irrigated and the skin was closed with 3-0 Monocryl in a subcuticular fashion. Mepilex dressing was applied without complication. Patient was taken to recovery in stable condition. Surgical findings: nl uterus tubes ovaries thickened abdominal wall Presentation: Vertex Amniotic Membrane Rupture Type: Artificial Amniotic Fluid Description: Clear Specimen collected: Yes Description of specimen(s) removed: placenta and baby Cord Vessel Description: 3 Vessels Delayed Cord Clamping: Yes Pharmacy Technologist bulk plant operator: Yes Survey Research Analyst: Emerald Mirza Tasks completed by licensed investment sales assistant: Opening & closing, Retracting and Other (assisting in delivery of the ) Additional residential real estate assistant?: No Complications Complications: No Admit VTE Documentation VTE Present on Admission: No VTE Mechan Device Prophylaxis: SCD's Procedures Urinary/Genital [id number]: [id number] Delivery [facility]
--- NOTE | 2024-04-09 06:25 | DCINST_ITS ---
Discharge Instructions Diet Discharge Diet: No restrictions DC O2, CPAP, BIPAP needs Home O2 Discharge instructions: No Dressing / Incision Discharge Activity: May Not Drive (for 2 weeks or while taking narcotic pain medications.), May Shower and May Take a Tub Bath (in 7 days) May shower in (days): 0 May resume sexual activity in: 4-6 weeks Weight Bearing Status: Full weight bearing Lifting Restrictions: 20 pounds Dressing / Incision Call your doctor if your incision/area has: Continuous Slow Oozing, Sudden Increased Bleeding, Increased Pain/ Swelling, Increased Redness and Foul Smelling Discharge Call your doctor if you observe: Fever of 101 or Higher and Using more than 1 pad per hour (for 2 hours) Suture Line Care: Avoid Pulling/Pushing and Avoid Pinching/Bending Cleanse incision/area with: Soap & Water and Keep Dressing Clean & Dry Follow Up Care Please Follow Up With: Barbara Loja MD When: Call [phone] to make an appointment for an incision check in 1-2 weeks. Test Results: Test results from this visit will be discussed in further detail at your follow- up appointment, if applicable. Discharge Plan Admission Admit Date/Time: 04/09/24 05:29 Attending Provider: Barbara Loja Primary Care Provider: Care Physician,Jes Primary Discharge Orders/Prescriptions Prescriptions: No Action prenat.vits,tracy,rfc-[id number] Tablet 1 tab PO DAILY Referrals / Follow Up: Care Physician,No Primary [Primary Care Provider] - Disposition Disposition (needs filled in before D/C Order can be placed): Home, Self Care
[2024-04-09] MEDS: Sodium Citrate/Citric Acid 30 ML UDC PO (06:51)
[2024-04-09] MEDS: Acetaminophen 500 MG Tablet 1000 MG PO ×3 (06:51→19:44)
[2024-04-09] MEDS: Lactated Ringers 1,000 ML 150 ML IV (06:52)
[2024-04-09] MEDS: Clindamycin 900 MG/50 ML BAG 75 MG IV (07:14)
[2024-04-09] MEDS: Gentamicin IV 320 MG in Dextrose 5%-Water (50mL Bag) 50 ML 100 MG IVPB (07:15)
[2024-04-09 07:58] LABS: AST(SGOT) 16 U/L (15-37); Alanine Aminotransfer ALT/SGPT 18 U/L (13-56); Creatinine, Serum 0.54 mg/dL (0.55-1.02); EST Glomerular Filtration Rate 145 mL/min (>60); Est Glom Filt Rate - Afr Amer 175 mL/min (>60); Estimated Creatinine Clearance 188.25 ml/min; Uric Acid 3.8 mg/dL (2.6-6.0)
[2024-04-09 07:59] LABS: Protein, Urine (Random) 6.8 mg/dL (<11.9); Protein:Creat Ratio 154 mg/g CRE (0-200)
[2024-04-09] MEDS: Oxytocin 15 Units/NS 250ml 15 UNITS/250 ML IV.SOLN 83 UNITS IV (08:35)
[2024-04-09] MEDS: 0.9% Saline Lock 10 ML Syringe IV ×3 (09:09→21:08)
[2024-04-09] MEDS: Ketorolac 30 MG/ML Syringe IV ×3 (09:09→21:08)
[2024-04-09 09:16] LABS: Syphilis Antibodies Non-reactive
[2024-04-09] MEDS: Senna/Docusate Sodium 1 Tablet PO (10:12)
[2024-04-09] MEDS: Enoxaparin 40 MG/0.4 ML Syringe SC (19:44)
[2024-04-10 00:04] VITALS: BP 128/69; PULSE 92; RESP 16; TEMP 36.6; O2SAT 98
[2024-04-10] MEDS: Acetaminophen 500 MG Tablet 1000 MG PO ×3 (01:03→12:48)
[2024-04-10] MEDS: Ketorolac 30 MG/ML Syringe IV (03:13)
[2024-04-10] MEDS: 0.9% Saline Lock 10 ML Syringe IV (03:14)
[2024-04-10 05:05] VITALS: BP 99/62; PULSE 100; RESP 16; TEMP 36.6; O2SAT 98
[2024-04-10 07:11] LABS: Hematocrit 23.8 % (37-47); Hemoglobin 8.1 g/dL (12.0-15.0); Mean Corpuscular Volume 88.1 fL (81-99); Mean Platelet Vol. 9.3 fl (6.2-12.0); Platelet Count 151 K/mm3 (150-450); RBC Distribution Width CV 12.9 % (11.6-14.6); RBC Distribution Width SD 40.4 fl (35.1-43.9); White Blood Count 8.1 K/mm3 (4.4-11.0)
[2024-04-10 08:00] VITALS: BP 102/69; PULSE 102; RESP 16; TEMP 36.7; O2SAT 98
[2024-04-10] MEDS: Naproxen 500 MG Tablet PO (08:08)
--- NOTE | 2024-04-10 09:31 | PCM.PN.OB ---
Subjective Subjective Patient doing well without complaints. Tolerating PO. Ambulating and voiding without difficulty. infant feeding well. Denies chest pain, shortness of breath, calf pain/swelling, fevers, chills, lightheadedness. Objective Data Objective Data Vital Signs: Vital Signs Temp Pulse Resp BP Pulse Ox O2 Del Method 98.1 F 102 H 16 102/69 98 Room Air 04/10/24 08:00 04/10/24 08:00 04/10/24 08:00 04/10/24 08:00 04/10/24 08:00 04/10/24 08:00 Oxygen Delivery Method Room Air Weight: 205 lb Body Mass Index (BMI) 31.1 Intake & Output: Intake and Output for Last 24 Hours 04/08/24 04/09/24 04/10/24 23:59 23:59 23:59 Intake Total 1913 / 1913 Output Total 2900 / 2900 900 / 900 Balance -987 / -987 -900 / -900 Lab / Micro Data 04/10/24 07:00 04/09/24 07:00 Labs: Laboratory Results - last 24 hr 04/10/24 07:00: WBC 8.1, RBC 2.70 L, Hgb 8.1 L, Hct 23.8 L, MCV 88.1, MCH 30.0, MCHC 34.0, RDW Std Deviation 40.4, RDW Coeff of Keisha 12.9, Plt Count 151, MPV 9.3 ROS Constitutional Constitutional: Reports systems reviewed and no addt'l complaints, except as documented Cardiovascular Cardiovascular: Reports systems reviewed and no addt'l complaints, except as documented Respiratory/Chest Respiratory/Chest: Reports systems reviewed and no addt'l complaints, except as documented Gastrointestinal Gastrointestinal: Reports systems reviewed and no addt'l complaints, except as documented Physical Exam Const alert, oriented x3 and no apparent distress HEENT Head and Scalp: atraumatic Resp normal respiratory effort GI soft to palpation and non-tender Inspection: incision intact, healing well and drainage (none) Bimanual Exam - Vag & Uterus: uterus non-tender Uterus Palpation: uterus fundus firm (below Umbilicus) Assessment & Plan (1) delivery delivered: COMMENT: [facility] NORMA Márquez 39 PLAN: Plan s/p LTCS PPD # 1 1. routine post care 2. breast feeding- support given 3. rh positive 4. rubella immune
[2024-04-10] MEDS: Senna/Docusate Sodium 1 Tablet PO (11:59)
--- NOTE | 2024-04-10 13:03 | CASEMGMT ---
Social Work Assessment Labor and Delivery Unit Patient Address: [address] [place] [address] [address] [place] [address] Phone number: [phone] Date of Referral: 04/09/24 Time of Referral:? 1018 Referred By: Dr. Loja Date of Intervention: ??04/10/24 Time of Intervention:? 1000 Reason for Referral:? hx of anxiety Sw completed chart review and acknowledges social work consult due to maternal mental health history. Sw presented to bedside and introduced self to mother of baby (CURT- Senthil) and father of baby (CAROLINA- Carlos Manuel). Sw explained reason for sw involvement and completed psychosocial assessment. History obtained from: medical records, MOB and FOB??? Household composition: Currently residing in the family home is CURT, CAROLINA, their three older children: Ken- 11, ely- 5 and Jaime- 2. [place] baby to be included in residence when ready for discharge. Parents deny housing concerns reporting it is safe and secure. Patient's parent/guardian status:? ?Parents were high school sweethearts and have been together for 13 years. baby is fourth baby for parents. No concerns reported of domestic violence or intimate partner violence. Medical History: ?CURT is 28 year old female who is 6, para 3- now 4 following labor and delivery of . CURT received routine care during with [facility]. CURT presented to hospital and delivered baby on 04/09/24 at 39 weeks gestation via repeat . Baby boy, named Willi Horowitz, was born weighing 8lb 9oz with apgars of 9 and 9 at one and five minutes of life, respectfully. CURT is breast feeding and reports that baby will be followed by Dr. Locke for pediatrics. Educational Status:? Both parents graduated from high school and deny problems with reading, learning or comprehension. Financial Status: Parents are employed for the same company: [employer], but work in different parts of the company. Supplies: All necessary baby items obtained, including: car seat, safe sleep space, clothes, diapers and wipes. Childcare/Caregiver(s):?MOB will be the primary caregiver to baby, along with FOB when he is not at work. When both parents are working they have family members who are able to provide childcare. Transportation:?Parents have their drivers license and reliable means of transportation. No barriers Programs/Agencies Involved: ?No linkage to any community agencies that assist parents financially as they are over income. Children Services/Legal Issues:??No history of children services involvement, no issues or concerns warranting referral to be made at this time. ? Behavioral Health Issues: ??Mental Health History:?FOB denies mental health history. MOB states that she has a history of anxiety, but it is managed and she does not require medication to help with symptoms. MOB states that she has felt good mentally since delivering the baby, but sad that it is their last baby. Substance Use History:?Parents deny substance use prior to and during .Family History:??Parents deny family history of alcohol and substance abuse, and significant mental health diagnoses. Drug Screens: NO drug screens observed in chart review. Family/Social Stressors:?Parents deny any issues, concerns or stressors at this time. Support Systems: MOB identifies that both sets of grandparents are their biggest supports. Depression/Shaken Baby/Safe Sleeping: Estevan educated parents on signs and symptoms of baby blues and mood and anxiety disorders to be mindful of during this period. Estevan explained that CURT is at risk due to her mental health history positive for anxiety. MOB states that she is familiar with those terms and what symptoms to be mindful of, and had never experienced them in the past. While talking, CURT did become tearful indicating that she is sad that it is their last baby. FOB stated the same thing, also highlighting how big their 2 year old daughter looked when the bigger kids came in to meet the . FOB states that if CURT were to struggle with her mental health he would be able to recognize that she is struggling and would know how to help and support her. Estevan educated parents on shaken baby prevention and ABCs of safe sleep, parents expressed understanding. ASSESSMENT:?MOB and baby admitted following labor and delivery of . MOB with mental health history of anxiety, is not prescribed medications and reports that symptoms are managed by utilizing healthy and safe coping skills. MOB denies experiencing baby blues or anxiety/ depression in the past. MOB and FOB at bedside and engaged in communication to complete psychosocial assessment. Parents observed to be excited that baby is here and observed to provide loving and appropriate hands on care to . Parents have obtained all baby supplies and have natural supports in place. PLAN:?? No other services requested or indicated. MOB and baby to be discharged when medically ready. Parents were provided literature regarding: signs and symptoms of baby blues and mood and anxiety disorders, Help Me Grow, shaken baby prevention, ABCs of safe sleep and a list of county resources that are available for them should any needs present themselves. Jeanmarie Melissa, SHUTTLE VAN DRIVER, SORT MANAGER
== END 2024-04-10 14:30 | disposition home or self-care (01) | DRG 787 ==
PROVIDERS: Admitting Provider Obstetrics & Gynecology; Referring Provider Obstetrics & Gynecology; Visit Provider Obstetrics & Gynecology
PROC: 10D00Z1 Extraction of Products of Conception, Low, Open Approach (ICD-10-PCS; CPT 59514; principal; 2024-04-09 07:00)
DX: O34.211 Maternal care for low transverse scar from previous cesarean delivery (principal); O98.32 Other infections with a predominantly sexual mode of transmission complicating childbirth; O98.52 Other viral diseases complicating childbirth; A60.00 Herpesviral infection of urogenital system, unspecified; E05.90 Thyrotoxicosis, unspecified without thyrotoxic crisis or storm; F41.9 Anxiety disorder, unspecified; B00.9 Herpesviral infection, unspecified; O99.344 Other mental disorders complicating childbirth; Z37.0 Single live birth; O99.284 Endocrine, nutritional and metabolic diseases complicating childbirth; Z3A.38 38 weeks gestation of pregnancy; Z87.440 Personal history of urinary (tract) infections; N96 Recurrent pregnancy loss; O99.893 Other specified diseases and conditions complicating puerperium
CPT/HCPCS: 59025; 59050; 82565; 82570; 84156; 84450; 84460; 84550; 85025; 85027; 86780; 86850; 86900; 86901; 99221; A4216; G0378; J2405